=== PATIENT | female | born 1965 | race African-American/Black ===

== ENCOUNTER 2017-11-10 19:30 | Observation (INO) | payer OTHER ==
[2017-11-10] MEDS ORDERED: ALBUTEROL 2.5 MG/3 ML NEB SOL ONE (22:05)
[2017-11-10 22:11] LABS: Absolute Lymphocytes (CBC) 2.3 K/uL (0.7-4.9); Absolute Monocytes 0.7 K/uL (0.1-1.3); Absolute Neutrophil 2.5 K/uL (1.8-8.0); Basophils % 0.5 % (0-1.3); Eosinophils % 4.3 % (0-4.4); Hematocrit 37.3 % (36.0-45.0); Lymphocytes % 39.6 % (15.3-44.8); MCV 77.9 fL (80-100); MPV 8.9 fL (7.6-11.3); Monocytes % 12.6 % (3.3-12.3); RBC Red Blood Cell Count 4.79 M/uL (3.86-4.86)
[2017-11-10 22:28] LABS: Potassium 3.8 mEq/L (3.6-5.0)
[2017-11-10 22:34] LABS: Albumin 3.6 g/dL (3.2-5.5); Bilirubin Direct 0.1 mg/dL (0-0.2); Bilirubin Total 0.3 mg/dL (0.3-1.2); Protein, Total 7.5 g/dL (6.0-8.3)
--- NOTE | 2017-11-10 23:28 | RAD REPORT ---
EXAM DESCRIPTION: RAD - Chest Single View - 11/10/2017 9:27 pm CLINICAL HISTORY: Chest pain COMPARISON: None. TECHNIQUE: AP portable chest image was obtained 8 hour . FINDINGS: Lungs are clear. Heart and vasculature are normal. No measurable pleural effusion and no p neumothorax. No gross bony abnormality seen. No acute aortic findings suspected. IMPRESSION: No acute cardiopulmonary process.
--- NOTE | 2017-11-11 00:37 | ER ---
Nurse's Notes [facility] Name: Radha Hughes Age: 52 yrs Sex: Female : 1965 Arrival Date: 11/10/2017 Time: 19:32 Bed 25 Private MD: Diagnosis: Chest pain, unspecified Presentation: 11/10 19:39 Presenting complaint: Patient states: [place] like indigestion yesterday, but today felt lp1 some chest pressure that makes it hard to take a deep breath, head pressure;. Transition of care: patient was not received from another setting of care. Onset of symptoms was November 10, 2017. Risk Assessment: Do you want to hurt yourself or someone else? Patient reports no desire to harm self or others. Initial Sepsis Screen: Does the patient meet any 2 criteria? No. Patient's initial sepsis screen is negative. Does the patient have a suspected source of infection? No. Patient's initial sepsis screen is negative. Care prior to arrival: None. 19:39 Method Of Arrival: Ambulatory lp1 19:39 Acuity: XIMENA 3 lp1 Triage Assessment: 19:43 General: Appears uncomfortable, Behavior is appropriate for age. Pain: Complains of lp1 pain in chest Pain currently is 8 out of 10 on a pain scale. Quality of pain is described as pressure. Cardiovascular: Patient's skin is warm and dry. Respiratory: Respiratory effort is even, Respiratory pattern is symmetrical, Breath sounds are clear bilaterally. Derm: Skin is pink, warm \T\ dry. 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 - Social history:: Smoking status: Patient/guardian denies using tobacco. - Ebola Screening: : No symptoms or risks identified at this time. - Family history:: not pertinent. - Hospitalizations: : No recent hospitalization is reported. Screenin:50 Abuse screen: Denies threats or abuse. Denies injuries from another. Nutritional aj1 screening: No deficits noted. Tuberculosis screening: No symptoms or risk factors identified. 23:01 Fall Risk None identified. lp1 Assessment: 21:50 General: Appears in no apparent distress. uncomfortable, Behavior is calm, cooperative, aj1 appropriate for age. Pain: Complains of pain in mid-sternal area Pain does not radiate. Pain currently is 8 out of 10 on a pain scale. Quality of pain is described as burning, pressure, Pain began 1 day ago. Is continuous, Alleviated by nothing. Aggravated by nothing. Neuro: Level of Consciousness is awake, alert, obeys commands, Oriented to person, place, time, situation, Speech is normal, Facial symmetry appears normal. Cardiovascular: Reports chest pain, palpitations, shortness of breath, Heart tones S1 S2 present Patient's skin is warm and dry. Rhythm is regular Chest pain is described as Pain is 8 out of 10 on a pain scale. quality is burning, pressure, is located in substernal area began 1 day ago episodes are continuous is aggravated by nothing is alleviated by nothing. Respiratory: Reports cough that is that just started Airway is patent Respiratory effort is even, unlabored, Respiratory pattern is regular, symmetrical, Breath sounds are clear bilaterally. GI: No signs and/or symptoms were reported involving the gastrointestinal system. : No signs and/or symptoms were reported regarding the genitourinary system. EENT: No signs and/or symptoms were reported regarding the EENT system. Derm: No signs and/or symptoms reported regarding the dermatologic system. Skin is pink, warm \T\ dry. normal. Musculoskeletal: No signs and/or symptoms reported regarding the musculoskeletal system. Circulation, motion, and sensation intact. 22:19 Reassessment: Patient appears in no apparent distress at this time. No changes from aj1 previously documented assessment. Patient and/or family updated on plan of care and expected duration. Pain level reassessed. Patient is alert, oriented x 3, equal unlabored respirations, skin warm/dry/pink. 23:00 Reassessment: Patient appears in no apparent distress at this time. Patient and/or lp1 family updated on plan of care and expected duration. Pain level reassessed. Patient is alert, oriented x 3, equal unlabored respirations, skin warm/dry/pink. 11/11 00:00 Reassessment: Patient appears in no apparent distress at this time. No changes from lp1 previously documented assessment. Patient and/or family updated on plan of care and expected duration. Pain level reassessed. Patient aware of pending admission, discussed with provider. 01:00 Reassessment: Patient appears in no apparent distress at this time. Patient resting, lp1 eyes closed, respirations unlabored. Vital Signs: 11/10 19:41 BP 150 / 72; Pulse 62; Resp 20; Temp 98.9(O); Pulse Ox 97% on R/A; Weight 127.01 kg; lp1 Height 5 ft. 4 in. (162.56 cm); Pain 8/10; 21:50 BP 150 / 79; Pulse 53; Resp 18; Pulse Ox 100% on R/A; aj1 22:19 BP 151 / 65; Pulse 59; Resp 18; Pulse Ox 100% on Nebulizer Mask; aj1 23:01 BP 134 / 79; Pulse 58; Resp 18; Pulse Ox 99% on R/A; lp1 11/11 00:00 BP 139 / 67; Pulse 81; Resp 21; Pulse Ox 98% on R/A; lp1 01:00 BP 138 / 82; Pulse 57; Resp 14; Pulse Ox 98% on R/A; lp1 01:35 BP 150 / 76; Pulse 70; Resp 19; Temp 98.5(O); Pulse Ox 99% on R/A; lp1 11/10 19:41 Body Mass Index 48.06 (127.01 kg, 162.56 cm) lp1 ED Course: 11/10 19:32 Patient arrived in ED. as 19:40 Triage completed. lp1 19:40 Arm band placed on left wrist. lp1 19:44 Patient maintains SpO2 saturation greater than 95% on room air. lp1 21:25 Patient moved to radiology via wheelchair. 1 21:25 X-ray completed. Patient tolerated procedure well. 1 21:25 Patient moved back from radiology. 1 21:26 Chest Single View XRAY In Process Unspecified. EDMS 21:31 Isrrael Miranda MD is Attending Physician. rn 21:34 Jojo Lagos, YESSI is Primary Nurse. aj1 21:50 Patient has correct armband on for positive identification. Bed in low position. Call aj1 light in reach. Side rails up X 1. secured entrance monitor on. Pulse ox on. NIBP on. 21:50 No provider procedures requiring assistance completed. aj1 22:03 Initial lab(s) drawn, by me, sent to lab. Inserted saline lock: 20 gauge in left aj1 forearm, using aseptic technique. Blood collected. 11/11 00:35 Lesley Hodgson MD is Hospitalizing Provider. rn 01:31 Patient admitted, IV remains in place. lp1 Administered Medications: 11/10 22:06 Drug: Xopenex 1.25 mg Route: Inhalation; aj1 11/11 01:40 CANCELLED (Inappropriate at this time; wrong patient): Zofran 4 mg IVP once; over 2 lp1 minutes Outcome: 00:36 Decision to Hospitalize by Provider. rn 01:31 Condition: stable lp1 01:31 Instructed on the need for admit. 01:46 Admitted to Tele accompanied by tech, via wheelchair, room 424, with chart, Report lp1 called to YESSI Barney 02:09 Patient left the ED. lp1 Signatures: Dispatcher [employer] EDJojo Dyer RN RN aj1 Lydia Elias [facility] Shanda Celestin Roman, MD MD rn Pena, Laura, RN RN lp1
--- NOTE | 2017-11-11 00:37 | EDPHYS ---
Physician Documentation [facility] Name: Radha Hughes Age: 52 yrs Sex: Female : 1965 Arrival Date: 11/10/2017 Time: 19:32 Bed 25 Private MD: ED Physician Isrrael Miranda HPI: 11/10 21:52 This 52 yrs old Black Female presents to ER via Ambulatory with complaints of Chest rn Pressure, Headache. 21:52 The patient or guardian reports chest pain that is located primarily in the substernal rn area. Onset: yesterday. The pain does not radiate. Associated signs and symptoms: Pertinent positives: palpitations, shortness of breath. The chest pain is described as dull, causing indigestion. Duration: The patient or guardian reports multiple episodes, that are intermittent. Modifying factors: The symptoms are alleviated by nothing. the symptoms are aggravated by nothing. Severity of pain: At its worst the pain was moderate in the emergency department the pain has improved. 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 - Social history:: Smoking status: Patient/guardian denies using tobacco. - Ebola Screening: : No symptoms or risks identified at this time. - Family history:: not pertinent. - Hospitalizations: : No recent hospitalization is reported. ROS: 21:53 Constitutional: Negative for fever, chills, and weight loss, Eyes: Negative for injury, rn pain, redness, and discharge, Neck: Negative for injury, pain, and swelling, Cardiovascular: Negative for edema, Respiratory: Negative for wheezing, and pleuritic chest pain, Abdomen/GI: Negative for abdominal pain, nausea, vomiting, diarrhea, and constipation, MS/Extremity: Negative for injury and deformity, Skin: Negative for injury, rash, and discoloration, Neuro: Negative for headache, weakness, numbness, tingling, and seizure. Exam: 21:53 Constitutional: This is a well developed, well nourished patient who is awake, alert, rn and in no acute distress. Head/Face: Normocephalic, atraumatic. Eyes: Pupils equal round and reactive to light, extra-ocular motions intact. Lids and lashes normal. Conjunctiva and sclera are non-icteric and not injected. Cornea within normal limits. Periorbital areas with no swelling, redness, or edema. Neck: Trachea midline, no thyromegaly or masses palpated, and no cervical lymphadenopathy. Supple, full range of motion without nuchal rigidity, or vertebral point tenderness. No Meningismus. Cardiovascular: Regular rate and rhythm with a normal S1 and S2. No gallops, murmurs, or rubs. Normal PMI, no JVD. No pulse deficits. Respiratory: Lungs have equal breath sounds bilaterally, clear to auscultation and percussion. No rales, rhonchi or wheezes noted. No increased work of breathing, no retractions or nasal flaring. Abdomen/GI: Soft, non-tender, with normal bowel sounds. No distension or tympany. No guarding or rebound. No evidence of tenderness throughout. MS/ Extremity: Pulses equal, no cyanosis. Neurovascular intact. Full, normal range of motion. Equal circumference. Neuro: Awake and alert, GCS 15, oriented to person, place, time, and situation. Cranial nerves II-XII grossly intact. Motor strength 5/5 in all extremities. Sensory grossly intact. Vital Signs: 19:41 BP 150 / 72; Pulse 62; Resp 20; Temp 98.9(O); Pulse Ox 97% on R/A; Weight 127.01 kg; lp1 Height 5 ft. 4 in. (162.56 cm); Pain 8/10; 21:50 BP 150 / 79; Pulse 53; Resp 18; Pulse Ox 100% on R/A; aj1 22:19 BP 151 / 65; Pulse 59; Resp 18; Pulse Ox 100% on Nebulizer Mask; aj1 23:01 BP 134 / 79; Pulse 58; Resp 18; Pulse Ox 99% on R/A; lp1 0530 00:00 BP 139 / 67; Pulse 81; Resp 21; Pulse Ox 98% on R/A; lp1 01:00 BP 138 / 82; Pulse 57; Resp 14; Pulse Ox 98% on R/A; lp1 01:35 BP 150 / 76; Pulse 70; Resp 19; Temp 98.5(O); Pulse Ox 99% on R/A; lp1 11/10 19:41 Body Mass Index 48.06 (127.01 kg, 162.56 cm) lp1 MDM: 11/10 21:31 Patient medically screened. rn 11/11 00:35 Differential diagnosis: abnormal EKG, acute myocardial infarction, acute pericarditis, rn anxiety, coronary artery disease chest wall pain, costochondritis, esophagitis, gastritis, gastroesophageal reflux disease (GERD), pericarditis, pleurisy, pneumothorax. Data reviewed: vital signs, nurses notes, lab test result(s), EKG, radiologic studies, plain films, and as a result, I will admit patient. Counseling: I had a detailed discussion with the patient and/or guardian regarding: the historical points, exam findings, and any diagnostic results supporting the discharge/admit diagnosis, lab results, radiology results, the need for further work-up and treatment in the hospital. Response to treatment: the patient's symptoms have mildly improved after treatment, and as a result, I will admit patient. Admission orders: after a detailed discussion of the patient's condition and case, the admit orders are written by me. 11/10 21:45 Order name: Basic Metabolic Panel; Complete Time: 22:35 11/10 21:45 Order name: BNP; Complete Time: 22:46 11/10 21:45 Order name: CBC with Diff; Complete Time: 22:35 11/10 21:45 Order name: LFT's; Complete Time: 22:35 11/10 21:45 Order name: Troponin (emerg Dept Use Only); Complete Time: 22:35 11/10 21:45 Order name: Lipase; Complete Time: 22:35 11/10 19:45 Order name: Chest Single View XRAY; Complete Time: 23:33 [facility] 11/10 19:45 Order name: EKG - Nurse/Tech; Complete Time: 21:37 [facility] 11/10 21:45 Order name: EKG; Complete Time: 21:45 11/10 21:45 Order name: Procalcitonin; Complete Time: 22:47 11/11 01:09 Order name: Urine Dipstick--Ancillary (enter results) eb 11/11 01:20 Order name: Urine Dipstick-Ancillary EDMS 11/10 21:45 Order name: Cardiac monitoring; Complete Time: 22:02 rn 11/10 21:45 Order name: IV Saline Lock; Complete Time: 22:02 rn 11/10 21:45 Order name: Labs collected and sent; Complete Time: 22:02 rn 11/10 21:45 Order name: O2 Per Protocol; Complete Time: 22:02 rn 11/10 21:45 Order name: O2 Sat Monitoring; Complete Time: 22:02 rn Administered Medications: 11/10 22:06 Drug: Xopenex 1.25 mg Route: Inhalation; [facility] 11/11 01:40 CANCELLED (Inappropriate at this time; wrong patient): Zofran 4 mg IVP once; over 2 lp1 minutes Disposition: 11/11/17 00:36 Hospitalization ordered by Lesley Hodgson for Observation. Preliminary diagnosis is Chest pain, unspecified. - Bed requested for Telemetry/MedSurg (observation). - Status is Observation. lp1 - Condition is Stable. - Problem is an ongoing problem. - Symptoms have improved. UTI on Admission? No Signatures: Dispatcher [employer] EDSD Jojo Lagos RN RN aj1 Kimberly Wilkerson RN RN dw Isrrael Miranda MD MD rn Pena, Laura, RN RN lp1 Corrections: (The following items were deleted from the chart) 00:42 00:36 Hospitalization Ordered by Lesley Hodgson MD for Observation. Preliminary dw diagnosis is Chest pain, unspecified. Bed requested for Telemetry/MedSurg (observation). Status is Observation. Condition is Stable. Problem is an ongoing problem. Symptoms have improved. UTI on Admission? No. rn 01:40 01:40 Zofran 4 mg IVP once; over 2 minutes ordered. lp1 lp1 02:09 00:42 11/11/2017 00:36 Hospitalization Ordered by Lesley Hodgson MD for Observation. lp1 Preliminary diagnosis is Chest pain, unspecified. Bed requested for Telemetry/MedSurg (observation). Status is Observation. Condition is Stable. Problem is an ongoing problem. Symptoms have improved. UTI on Admission? No. dw
[2017-11-11] MEDS ORDERED: SODIUM CHLORIDE 0.9% 10ML INJ IV PRN (01:10)
[2017-11-11] MEDS ORDERED: ONDANSETRON 4 MG/2 ML VIAL IV PRN (01:10)
[2017-11-11] MEDS ORDERED: NITROGLYCERIN 0.4 MG/TAB SL ONE (01:10)
[2017-11-11] MEDS ORDERED: ACETAMINOPHEN 500 MG TAB PO PRN (01:10)
[2017-11-11 01:20] LABS: Urine Blood NEGATIVE (NEG); Urine Glucose NEGATIVE (NEG); Urine Protein NEGATIVE (NEG)
--- NOTE | 2017-11-11 01:20 | P.HP ---
Certification for Inpatient Patient admitted to: Observation With expected LOS: <2 Midnights Practitioner: I am a practitioner with admitting privileges, knowledge of patient current condition, hospital course, and medical plan of care. Services: Services provided to patient in accordance with Admission requirements found in Title 42 Section 412.3 of the Code of Federal Regulations Patient History Date of Service: 11/11/17 Reason for admission: chest pain History of Present Illness: Ms Hughes is a 52 years old woman, with a quite benign past medical history, who start haveing some episodes of chest pain since yesterday. The pain last for a few minutes. Then she start having it again, described as tightness sensation, in substernal/epigastric area, associated with nausea and SOB. She had palpitations as well. She has never had this symptoms in the past. The intensity of the pain is 6/10. In ER her lab work shows normal troponin I, EKG no ST-T abnormalities. Allergies Aspirin Allergy (Uncoded 07/02/15 12:31) Unknown - Past Medical/Surgical History Past Medical History: Reviewed- Non-Contributory -: tubal ligation -: foot - Family History Family History: Reviewed- Non-Contributory - Social History Smoking Status: Never smoker Alcohol use: No CD- Drugs: No Place of Residence: Home Review of Systems 10-point ROS is otherwise unremarkable Physical Examination - Physical Exam General: Alert, In no apparent distress HEENT: Atraumatic, PERRLA, Mucous membr. moist/pink, EOMI, Sclerae nonicteric Neck: Supple, 2+ carotid pulse no bruit, No LAD, Without JVD or thyroid abnormality Respiratory: Clear to auscultation bilaterally, Normal air movement Cardiovascular: Regular rate/rhythm, Normal S1 S2 Gastrointestinal: Normal bowel sounds, No tenderness Musculoskeletal: No tenderness Integumentary: No rashes Neurological: Normal speech, Normal strength at 5/5 x4 extr, Normal tone, Normal affect Lymphatics: No axilla or inguinal lymphadenopathy - Studies Laboratory Data (last 24 hrs) 11/10/17 21:59: WBC 5.7, Hgb 11.5 L, Hct 37.3, Plt Count 236 11/10/17 21:59: B-Natriuretic Peptide < 10 11/10/17 21:59: Sodium 139, Potassium 3.8, BUN 13, Creatinine 0.86, Glucose 105 , Total Bilirubin 0.3, AST 23, ALT 25, Alkaline Phosphatase 70, Lipase 21 L Assessment and Plan - Problems (Diagnosis) (1) Chest pain Current Visit: Yes Status: Acute Qualifiers: Chest pain type: precordial pain Qualified Code(s): R07.2 - Precordial pain - Plan The patient will be admitted to the hospital due to chest pain. So far EKG without ST-T abnormalities, trop I negative. Will order serial cardiac enzymes and EKG. Consult Cardiology. Will order an ECHO. - Advance Directives Does patient have a Living Will: No Does patient have a Durable POA for Healthcare: No - Code Status/Comfort Care Code Status Assessed: Yes Code Status: Full Code
[2017-11-11 02:49] VITALS: BMI 48.0
[2017-11-11 04:58] VITALS: O2SAT 97
--- NOTE | 2017-11-11 07:43 | EKG ---
Test Date: 2017-11-10 Test Time: 19:53:34 Educator Senior Clinical: MEASUREMENT RESULTS: Intervals: Rate: 57 MA: 176 QRSD: 88 QT: 430 QTc: 418 [place]: P: 51 MA: 176 QRS: 47 T: 54 INTERPRETIVE STATEMENTS: Sinus bradycardia Otherwise normal ECG No previous ECG available for comparison Electronically Signed On 11-11-17 07:42:45 CDT by Vitaly Rivas
[2017-11-11 08:31] VITALS: TEMP 97.3
[2017-11-11] MEDS ORDERED: ENOXAPARIN 40 MG/0.4 ML SQ SCH (09:00)
[2017-11-11] MEDS ORDERED: PANTOPRAZOLE 40 MG INJ IVP SCH (09:00)
[2017-11-11] MEDS ORDERED: CLOPIDOGREL 75 MG TABLET PO SCH (09:00)
--- NOTE | 2017-11-11 10:24 | EKG ---
Test Date: 2017-11-11 Test Time: 09:10:28 Lines Tender: [place] MEASUREMENT RESULTS: Intervals: Rate: 57 TN: 172 QRSD: 84 QT: 444 QTc: 432 [place]: P: 48 TN: 172 QRS: 46 T: 52 INTERPRETIVE STATEMENTS: Sinus bradycardia Otherwise normal ECG Compared to ECG 11/10/2017 19:53:34 No significant changes Electronically Signed On 11-11-17 10:24:20 CDT by Viatly Rivas
[2017-11-11 12:30] VITALS: BP 139/59
--- NOTE | 2017-11-11 12:33 | TREADMILL ---
70% H.R.: 118 85% H.R.: 143 90% H.R.: 151 100% H.R.: 168 DX: CHEST PAIN Date of Study: 11/11/2017 Ht: 5 4 Wt: 280 lb 0 oz Consulting Physician: KAYLEE MEDICATIONS: TYLENOL, PLAVIX, LOVENOX, ZOFRAN, PROTONIC HISTORY: 52 YEAR OLD WOMAN WITH CHEST PAIN. MYOCARDIAL INFARCTION WAS RULED OUT. PHYSICIAL EXAMINATION: RESTING B.P.: 166/95 RESTING H.R.: 51 RESTING EKG: SINUS BRADYCARDIA, OTHERWISE NORMAL. PROTOCOL: ANTONIO ROUTINE EXERCISE TIME: 6:23 MAXIMUM HEART RATE: 145 % OF PREDICTED B.P. AT PEAK STRESS: 217/96 168/98 H.R. AT 1 MINUTE POST EXERCISE: 130 IMPRESSION: STRESS TEST STOPPED FOR FATIGUE. TARGET HEART RATE. NO CHEST PAIN OR ST CHANGE. NORMAL STRESS TEST.
--- NOTE | 2017-11-11 13:01 | CON ---
Identification: A 52-year-old woman. Attending Physician: Dr. Colvin. Chief Complaint: Indigestion. History Of Present Illness: Ms. Hughes started having chest pain. She gets heartburn frequently an d does not pay much attention to it, but this seemed to be different, especially when she laid down i n bed. She does not have exertional chest tightness or anything that sounds very much like angina. She has no history of heart disease. She did a stress test several years ago and that was normal. N ever had myocardial infarction or stroke. She does not have diabetes or dyslipidemia. She uses no t obacco. She is allergic to aspirin. She uses Aleve frequently for headaches. Physical Examination: General: She is 5 feet 4 inches, 280 pounds, body mass index 48. HEENT: Normal. Neck: Carotids no bruit. Lungs: Clear. Extremities: 1 to 2+ edema. Laboratory Data: Reveals a normal B-natriuretic peptide, normal troponins, normal procalcitonin, nor mal BUN, creatinine, blood sugar, electrolytes. Her complete blood count reveals mild microcytosis, mild anemia. The patient has been told that she has iron deficiency in the past. She has had a tuba l ligation. Still has menstrual periods and has not had a GI evaluation for her blood loss. Impression: This is probably a noncardiac chest pain. We should attempt a stress test and echocardi ogram to see, perhaps a GI workup as an outpatient would be useful. She could certainly be started on a proton pump inhibitor. Check stool guaiac while she is here. JOCE Voice ID: [id number] Report ID: [id number]
[2017-11-11] MEDS ORDERED: NITROGLYCERIN 0.4 MG/TAB SL PRN (13:23)
[2017-11-11] MEDS ORDERED: Morphine 2 MG/2 ML SYR IV ONE (14:00)
--- NOTE | 2017-11-11 15:47 | EKG ---
Test Date: 2017-11-11 Test Time: 14:01:32 Clinic Cma: DAVID MEASUREMENT RESULTS: Intervals: Rate: 67 VT: 182 QRSD: 78 QT: 402 QTc: 424 [place]: P: 62 VT: 182 QRS: 61 T: 64 INTERPRETIVE STATEMENTS: Normal sinus rhythm Normal ECG Compared to ECG 11/11/2017 09:10:28 Sinus bradycardia no longer present Electronically Signed On 11-11-17 15:46:02 CDT by Vitaly Rivas
--- NOTE | 2017-11-11 15:49 | ECHO ---
HEIGHT: 5 ft 4 in WEIGHT: 280 lb 0 oz DATE OF STUDY: 11/11/[address]: Vitaly Rivas MD 2-DIMENSIONAL: YES M.MODE: YES DOPPLER: YES COLOR FLOW: YES TDS: NO PORTABLE: NO DEFINITY: NO BUBBLE STUDY: NO DIAGNOSIS: CHEST PAIN CARDIAC HISTORY: CATHERIZATION: NO SURGERY: NO PROSTHETIC VALVE: NO PACEMAKER: NO MEASUREMENTS (cm) DIASTOLIC (NORMALS) SYSTOLIC (NORMALS) IVSd 0.8 (0.6-1.2) LA Diam 3.6 (1.9-4.0) LVEF 53% LVIDd 4.3 (3.5-5.7) LVIDs 3.1 (2.0-3.5) %FS 27% LVPWd 0.9 (0.6-1.2) Ao Diam 3.0 (2.0-3.7) 2 DIMENSIONAL ASSESSMENT: RIGHT ATRIUM: NORMAL LEFT ATRIUM: NORMAL RIGHT VENTRICLE: NORMAL LEFT VENTRICLE: NORMAL TRICUSPID VALVE: NORMAL MITRAL VALVE: NORMAL PULMONIC VALVE: NORMAL AORTIC VALVE: NORMAL PERICARDIAL EFFUSION: NONE AORTIC ROOT: NORMAL LEFT VENTRICULAR WALL MOTION: NORMAL. DOPPLER/COLOR FLOW: NORMAL. COMMENTS: NORMAL 2D ECHO WITH DOPPLER. TECHNOLOGIST: ANJU BECKFORD
[2017-11-12] MEDS ORDERED: PANTOPRAZOLE 40MG TABLET PO SCH (07:30)
--- NOTE | 2017-11-12 11:59 | DS ---
Date of Discharge: 11/11/2017 Consultants: Dr. Rivas with Cardiology. Procedure: Exercise stress test, negative. Admitting Diagnoses: 1.Chest pain, rule out acute coronary syndrome. 2.Morbid obesity. BMI is 48. 3.Microcytic hypochromic anemia. Discharge Diagnoses: 1.Atypical chest pain. Acute coronary syndrome ruled out. Exercise stress test negative. 2.Morbid obesity. BMI 48. 3.Microcytic hypochromic anemia, likely secondary to continued administration at her age. Hospital Course: The patient is a 52-year-old female who came into the hospital for episodes of ches t pain that has been ongoing for the past couple of days, reported some tightness in the epigastric s ubsternal region along with nausea and shortness of breath. The patient's workup revealed negative t roponin levels and chest x-ray did not show any acute abnormalities. EKG showed sinus bradycardia, n o acute ST-T wave changes. The patient was seen by Cardiology, Dr. Rivas, who recommended exercise stress test, which was negative. The patient was then cleared for discharge from a cardiology standp oint. The patient will need to follow up with GI for her anemia or perhaps it will be due to her con tinued menstrual cycles at her age of 52 to rule out a more concerning pathology. The patient will b e started on PPI trial as this may be atypical chest pain and will have a stool guaiac checked. The patient is discharged home in a stable condition. Activity: As tolerated. Medications: As per medication reconciliation note. Diet: Calorie restricted. She was counseled extensively on losing weight. Her best option will be bariatric surgery due to her elevated BMI of 48. She needs to establish care with a primary care phy sician. Medications: As per medication reconciliation list. Physical Examination: General: Awake, alert, oriented, no acute distress. CVS: S1, S2. No murmurs. Respiratory: Moving air well bilaterally. Abdomen: Soft, nontender, nondistended. Positive bowel sounds. Extremities: No clubbing, cyanosis, or edema. Neurologic: Nonfocal. SA/MODL Voice ID: [id number] Report ID: [id number]
== END 2017-11-11 15:45 | disposition home or self-care (01) ==
LOC: ER 19:30 → ERHOLD 11-11 00:37 → 4TH 11-11 01:39
PROVIDERS: ADMIT Internal Medicine; ATTEND Internal Medicine
DX: R07.89 Other chest pain (principal); E66.01 Morbid (severe) obesity due to excess calories; Z68.42 Body mass index [BMI] 45.0-49.9, adult; D50.9 Iron deficiency anemia, unspecified; Z88.6 Allergy status to analgesic agent
CPT/HCPCS: 36415; 71045; 80048; 80076; 81003; 83690; 83880; 84145; 84484; 85025; 93005; 93017; 93306; 99285; C9113; G0378; J1650; J2270

== ENCOUNTER 2018-09-22 09:29 | Emergency (ER) | payer OTHER ==
--- OUTSIDE RECORDS SUMMARY | 2018-09-22 09:32 | XMS REPORT | Continuity of Care Document ---
:1965 Author Organization Interface Problems Problem Status Onset Classification Date Comments Source Date Reported 5TH DIGIT OPEN Active [facility] LEFT TOE FX 6 Medical Center Final: 05/21/2016 [facility] Displaced Medical unspecified Center fracture of left lesser toe, initial encounter for open fracture DISPLACED UNSP Active [facility] FX LEFT LESSER Medical TOE(S), [place] Center Medications Medication Details Route Status Patient Ordering Order Source Instructions Provider Date Acetaminophen 1 - 2 tab, PO, Active [place] 300 MG / Q6H, PRN Pain, X 2015 Medical Codeine 4 day, # 32 tab, Center Phosphate 30 MG 0 Refill(s) Oral Tablet [Tylenol with Codeine #3] methocarbamol 1,000 mg=2 tab, Active [place] 500 mg oral PO, Q8H, X 14 2015 Medical tablet day, # 84 tab, 0 Center Refill(s) gabapentin 300 300 mg=1 cap, Active [facility] MG Oral Capsule PO, Q8H, # 42 2016 Medical cap, 0 Refill(s) Center Miralax 17 gm, 1 pkt, No Longer [facility] Route: PO, Drug Active 2015 Medical form: PWDR, BID, Center Dosing Weight 119.091, kg, Start date: 05/16/16 9:00:00 [employer], Duration: 30 day, Stop date: 06/14/16 17:00:00 CSTNotes: Dissolve in 8 oz of water or juice. (Same as: Miralax) Robaxin 500 mg, 1 tab, Inactive [facility] Route: PO, Drug 2015 Medical form: TAB, TID, Center Dosing Weight 119.091, kg, Start date: 05/16/16 9:00:00 [employer], Duration: 30 day, Stop date: 06/14/16 17:00:00 CSTNotes: (Same as:Robaxin) gabapentin 300 300 mg, 1 cap, No Longer [facility] MG Oral Capsule Route: PO, Drug Active 2015 Medical form: CAP, Q8H, Center Dosing Weight 119.091, kg, (CrCl > 60 ml/min), Start date: 05/16/16 8:00:00 [employer], Duration: 30 day, Stop date: 06/15/16 0:00:00 CSTNotes: (Same as: Neurontin) Methocarbamol 1,000 mg, 2 tab, No Longer [facility] Route: PO, Drug Active 2015 Medical form: TAB, Q8H, Center Dosing Weight 119.091, kg, Start date: 05/16/16 8:00:00 [employer], Duration: 30 day, Stop date: 06/15/16 0:00:00 CSTNotes: (Same as:Robaxin) sennosides, FCI 17.2 mg, 2 tab, No Longer [facility] Route: PO, Drug Active 2015 Medical Form: TAB, Center Dosing Weight 119.091, kg, Bedtime, Start date: 05/15/16 21:00:00 [employer], Duration: 30 day, Stop date: 06/13/16 21:00:00 CSTNotes: (Same as: Senokot) Tramadol 100 mg, 2 tab, No Longer [facility] Route: PO, Drug Active 2015 Medical form: TAB, Center Q6Hnow, Dosing Weight 119.091, kg, Start date: 05/15/16 18:00:00 [employer], Duration: 30 day, Stop date: 06/14/16 12:00:00 CSTNotes: Not to exceed 400mg/day. (Same As: Ultram) Dulcolax 10 mg, 2 tab, No Longer [facility] Laxative Route: PO, Drug Active 2015 Medical form: ECTAB, Center Daily, Dosing Weight 119.091, kg, PRN Constipation, Start date: 05/15/16 17:06:00 [employer], Duration: 30 day, Stop date: 06/14/16 17:05:00 CSTNotes: (Same As: Dulcolax, Correctol) (Do Not Crush) "Do Not Crush" Tylenol 650 mg, 2 tab, No Longer [facility] Route: PO, Drug Active 2015 Medical form: TAB, Q6H, Center Dosing Weight 119.091, kg, PRN Pain 1-3/Temp > 100.4 F, Start date: 05/15/16 17:06:00 [employer], Duration: 30 day, Stop date: 06/14/16 17:05:00 CSTNotes: Do not exceed 4 gm/day. (Same as: Tylenol) ceFAZolin 2 gm, Route: No Longer [facility] (SCIP) + sodium IVPB, Drug form: Active 2016 Medical chloride 0.9% INJ, Q8H, Dosing Center INJ 100 mL Weight 119.091, kg, Start date: 05/15/16 16:00:00 [employer]IST, Duration: 9 doses or times, Stop date: 05/18/16 8:00:00 CSTNotes: (Same As: Jeff Cedillo) Cefazolin FOR IV SET ONLY MEDICATION WASTE Product Size: 1000 mg Product Wasted: ___ mg Docusate 100 mg, 1 cap, No Longer [facility] Route: PO, Drug Active 2015 Medical form: CAP, BID, Center Dosing Weight 119.091, kg, Start date: 05/15/16 9:00:00 [employer], Duration: 30 day, Stop date: 06/13/16 17:00:00 CSTNotes: (Same as: Colace) (Do Not Crush) Hydromorphone 0.5 mg, 0.25 mL, Inactive [facility] Route: IVP, Drug 2015 Medical form: INJ, Center Q5Min, Dosing Weight 119.091, kg, PRN Pain Score 7-10, Start date: 05/15/16 8:14:00 [employer], Duration: 4 doses or times, Stop date: Limited # of timesNotes: (Same as: Dilaudid) Flumazenil 0.2 mg, 2 mL, Inactive [facility] Route: IVP, Drug 2015 Medical form: INJ, PRN, Center Dosing Weight 119.091, kg, PRN Benzodiazepine Reversal, Initial dose, Start date: 05/15/16 8:14:00 [employer]IST, Duration: 1 day, Stop date: 05/16/16 8:13:00 CSTNotes: (Same as: Romazicon) Naloxone 0.4 mg, 1 mL, Inactive [facility] Route: IVP, Drug 2015 Medical form: INJ, Center Q2MIN, Dosing Weight 119.091, kg, PRN Narcotic Reversal, Start date: 05/15/16 8:14:00 [employer]IST, Duration: 8 doses or times, Stop date: Limited # of timesNotes: (Same as: Narcan) Meperidine 12.5 mg, 0.5 mL, Inactive [facility] Route: IVP, Drug 2015 Medical form: INJ, Center Q30Min, Dosing Weight 119.091, kg, PRN Other -See Comment, For shivering, Start date: 05/15/16 8:14:00 [employer]IST, Duration: 2 doses or times, Stop date: Limited # of timesNotes: (Same as: Demerol) "Use Precaution in Elderly, Seizure disorders, and Renal impairment" Ondansetron 4 mg, 2 mL, Inactive [facility] Route: IVP, Drug 2015 Medical form: INJ, ONCE, Center Dosing Weight 119.091, kg, PRN Nausea & Vomiting, Start date: 05/15/16 8:14:00 CSTNotes: (Same as: Zofran) MEDICATION WASTE Product Size: 4 mg Product Wasted: ___ mg Morphine 2 mg, 1 mL, Inactive [facility] Route: IVP, Drug 2015 Medical form: INJ, Center Q5Min, Dosing Weight 119.091, kg, PRN Pain Score 4-6, Start date: 05/15/16 8:14:00 [employer]IST, Duration: 5 doses or times, Stop date: Limited # of timesNotes: (Same as:MORPhine Sulfate) Enoxaparin 40 mg, 0.4 mL, No Longer [facility] Route: SUB-Q, Active 2015 Medical Drug form: INJ, Center [id number], Dosing Weight 119.091, kg, Consider for obese patients, Start date: 05/15/16 3:00:00 [employer]IST, Duration: 30 day, Stop date: 06/13/16 15:00:00 CSTNotes: (Same as: Lovenox) Acetaminophen 1,000 mg, 2 tab, No Longer [facility] Route: PO, Drug Active 2015 Medical form: TAB, Center Q6Hnow, Dosing Weight 119.091, kg, PRN Pain 4-6/Temp > 100.4 F, Start date: 05/15/16 2:32:00 C[employer]IST, Stop date: 06/14/16 2:31:00 CSTNotes: Max acetaminophen 4000 mg/day (4 gm/day). (Same as: Tylenol Extra Strength) Tramadol 100 mg, 2 tab, Inactive [place] Route: PO, Drug 2015 Medical form: TAB, Center Q6Hnow, Dosing Weight 119.091, kg, PRN Pain Score 4-6, Start date: 05/15/16 2:32:00 C[employer]ING [employer]IST, Duration: 30 day, Stop date: 06/14/16 2:31:00 CSTNotes: Not to exceed 400mg/day. (Same As: Ultram) Oxycodone 10 mg, 2 tab, No Longer [facility] 5 Route: PO, Drug Active 2015 Medical MG Oral Tablet form: TAB, Q4H, Center Dosing Weight 119.091, kg, PRN Pain Score 7-10, Start date: 05/15/16 2:32:00 C[employer]IST, Duration: 30 day, Stop date: 06/14/16 2:31:00 CSTNotes: (Same as: Roxicodone) Ondansetron 4 mg, 2 mL, No Longer [facility] Route: IVP, Drug Active 2015 Medical form: INJ, Q8H, Center Dosing Weight 119.091, kg, PRN Nausea & Vomiting, Start date: 05/15/16 2:32:00 C[employer]IST, Duration: 30 day, Stop date: 06/14/16 2:31:00 CSTNotes: (Same as: Zofran) MEDICATION WASTE Product Size: 4 mg Product Wasted: ___ mg Bisacodyl 10 mg, 1 supp, No Longer [facility] Route: NE, Drug Active 2015 Medical form: SUPP, Center Daily, Dosing Weight 119.091, kg, PRN Constipation, Start date: 05/15/16 2:32:00 C[employer]ING [employer]IST, Duration: 30 day, Stop date: 06/14/16 2:31:00 CSTNotes: (Same As: Dulcolax, Bisco-Lax) Methocarbamol 1,000 mg, 2 tab, No Longer [facility] Route: PO, Drug Active 2015 Medical form: TAB, Q8H, Center Dosing Weight 119.091, kg, PRN Muscle Spasms, Start date: 05/15/16 2:32:00 C[employer]ING SPECIALIST, Duration: 30 day, Stop date: 06/14/16 2:31:00 CSTNotes: (Same as:Robaxin) Melatonin 3 mg, 1 tab, No Longer [facility] Route: PO, Drug Active 2015 Medical form: TAB, Center Bedtime, Dosing Weight 119.091, kg, PRN Insomnia, Start date: 05/15/16 2:32:00 C[employer]IST, Duration: 30 day, Stop date: 06/14/16 2:31:00 CSTNotes: (Same as: Melatonin) Morphine 2 mg, 0.5 mL, No Longer [facility] Route: IVP, Drug Active 2015 Medical form: SOLN, Q4H, Center Dosing Weight 119.091, kg, PRN Pain Score 7-10, Start date: 05/15/16 2:32:00 C[employer]IST, Duration: 30 day, Stop date: 06/14/16 2:31:00 CSTNotes: (Same as:MORPhine Sulfate) Morphine 4 mg, 1 mL, Inactive [facility] Route: IVP, Drug 2015 Medical form: SOLN, Center ONCE, Dosing Weight 119.091, kg, Priority: STAT, Start date: 05/15/16 1:26:00 C[employer]ING [employer]IST, Stop date: 05/15/16 1:26:00 CSTNotes: (Same as:MORPhine Sulfate) Ondansetron 4 mg, Route: Inactive [facility] IVP, Drug form: 2016 Medical INJ, ONCE, Center Dosing Weight 119.091, kg, Priority: STAT, Start date: 05/14/16 21:58:00 C[employer]ING [employer]IST, Stop date: 05/14/16 21:58:00 C[employer] POSTING [employer]IST Morphine 4 mg, Route: Inactive [facility] IVP, ONCE, 2016 Medical Dosing Weight Center 119.091, kg, Priority: STAT, Start date: 05/14/16 21:58:00 C[employer]ING SPECIALIST, Stop date: 05/14/16 21:58:00 C[employer] POSTING [employer]IST Ancef 2 gm, Route: Inactive [facility] IVPB, ONCE, 2016 Medical Dosing Weight Center 119.091, kg, Priority: STAT, Start date: 05/14/16 21:58:00 C[employer]ING [employer]IST, Stop date: 05/14/16 21:58:00 C[employer]ING [employer]IST Saline Flush 10 mL, Route: No Longer [facility] 0.9% IVP, Drug Form: Active 2015 Medical INJ, Dosing Center Weight 119.091, kg, PRN, PRN Line Flush, Start date: 05/14/16 21:58:00 C[employer] POSTING SPECIALIST, Duration: 30 day, Stop date: 06/13/16 21:57:00 CSTNotes: (Same as: BD Posiflush) Allergies, Adverse Reactions, Alerts Substance Category Reaction Severity Reaction Status Date Comments Source type Reported aspirin Assertion Drug Active [facility] Immunizations Immunization Date Given Site Status Last Updated Comments Source Results Order Name Results Value Reference Date Interpretation Comments Source Range ANEMIA TIBC 318 ug/dl 228 - 428 05/18 [facility]2015 [facility] ANEMIA Iron 42 ug/dl 30 - 160 05/[address] ANEMIA % [place] 13 % 12 - 57 05/[address] ANEMIA UIBC 276 ug/dl 110 - 370 05/[address] CHEM PANEL Phosphorus 2.7 mg/dL 2.5 - 4.5 05/[address] CHEM PANEL B/C Ratio 11 6 - 25 05/[address] CHEM PANEL AGAP 9.5 meq/L 10.0 - 05/18 [facility] 20.0 [facility] CHEM PANEL Globulin 4.4 g/dL 2.7 - 4.2 05/[address] CHEM PANEL A/G Ratio 0.7 0.7 - 1.6 05/[address] CHEM PANEL eGFR 96 05/18 Result Comment: The eGFR is calculated using the CKD-EPI formula. In most young, healthy individuals the eGFR will be >90 mL/ min/1.73m2. The eGFR declines with age. An eGFR of 60-89 may be normal in [facility] mL/min/1.73 some populations, particularly the elderly, for whom the CKD-EPI formula has not been extensively validated. Use of the eGFR is not recommended in the following populations: [address] Individuals with unstable creatinine concentrations, including patients and those with serious co-morbid conditions. Patients with extremes in muscle mass or diet. The data above are obtained from the National Kidney Disease Education Program (NKDEP) which additionally recommends that when the eGFR is used in patients with extremes of body mass index for purposes of drug dosing, the eGFR should be multiplied by the estimated BMI. CHEM PANEL Bili Total 0.2 mg/dL 0.2 - 1.3 05/18 [facility] CHEM PANEL Alk Phos 66 unit/L 39 - 136 05/[address] CHEM PANEL ALT 25 unit/L 0 - 65 05/[address] CHEM PANEL AST 32 unit/L 0 - 37 05/[address] CHEM PANEL Albumin Lvl 2.9 g/dL 3.5 - 5.0 05/[address] CHEM PANEL Calcium Lvl 8.9 mg/dL 8.5 - 10.5 05/[address] CHEM PANEL Total 7.3 g/dL 6.4 - 8.4 05/18 [facility] CHEM PANEL Creatinine 0.82 mg/dL 0.50 - 05/18 [facility] Lvl 1.40 [facility] CHEM PANEL CO2 29 meq/L 24 - 32 05/[address] CHEM PANEL Sodium Lvl 136 meq/L 135 - 145 05/[address] CHEM PANEL Potassium 4.5 meq/L 3.5 - 5.1 05/18 [facility] [address] [place] [address] CHEM PANEL Chloride Lvl 102 meq/L 95 - 109 05/[address] CHEM PANEL BUN 9 mg/dL 7 - 22 05/[address] CHEM PANEL Glucose Lvl 102 mg/dL 70 - 99 05/[address] CHEM PANEL Magnesium 2.0 mg/dL 1.8 - 2.4 05/18 [facility] HEMATOLOGY Lymphocytes 20.2 % 20.0 - 12/ [place] 40.0 [facility] HEMATOLOGY Monocytes 12.3 % 2.0 - 12.0 05/[address] HEMATOLOGY Segs 63.7 % 45.0 - 12/04 [place] 75.0 [facility] HEMATOLOGY Eosinophils 3.4 % 0.0 - 4.0 05/18 [facility] HEMATOLOGY Basophils 0.4 % 0.0 - 1.0 05/18 [facility] HEMATOLOGY Monocytes # 0.6 K/CMM 0.0 - 0.8 05/18 [facility] HEMATOLOGY Segs-Bands # 3.2 K/CMM 1.5 - 8.1 05/18 [facility] HEMATOLOGY Lymphocytes 1.0 K/CMM 1.0 - 5.5 05/18 [facility] HEMATOLOGY Eosinophils 0.2 K/CMM 0.0 - 0.5 05/18 [facility] HEMATOLOGY Microcyte 1+ None Seen 05/18 [facility] Center (05/18/16 4:30 AM) HEMATOLOGY Platelet 200 K/CMM 133 - 450 05/18 [facility] HEMATOLOGY RDW 16.3 % 11.5 - 05/18 [facility] 14.5 [facility] HEMATOLOGY MPV 9.0 fL 7.4 - 10.4 05/18 [facility] HEMATOLOGY RBC 4.44 M/CMM 4.20 - 05/18 [facility] 5.40 [facility] HEMATOLOGY WBC 5.0 K/CMM 3.7 - 10.4 05/18 [facility] HEMATOLOGY MCH 24.9 pg 27.0 - 05/18 [facility] 31.0 [facility] HEMATOLOGY MCV 78.7 fL 80.0 - 05/18 [facility] 98.0 [facility] HEMATOLOGY MCHC 31.7 g/dL 32.0 - 12/ [facility] 36.0 [facility] HEMATOLOGY Hct 35.0 % 36.0 - 12 [place] 48.0 [facility] HEMATOLOGY Hgb 11.1 g/dL 12.0 - 05/18 [facility] 16.0 [facility] CHEM PANEL Calcium Lvl 8.8 mg/dL 8.5 - 10.5 05/17 [facility]2015 [facility] CHEM PANEL eGFR 99 05/17 Result Comment: The eGFR is calculated using the CKD-EPI formula. In most young, healthy individuals the eGFR will be >90 mL/ min/1.73m2. The eGFR declines with age. An eGFR of 60-89 may be normal in [facility] mL/min/1.73 /2016 some populations, particularly the elderly, for whom the CKD-EPI formula has not been extensively validated. Use of the eGFR is not recommended in the following populations: [place] [address] Center Individuals with unstable creatinine concentrations, including patients and those with serious co-morbid conditions. Patients with extremes in muscle mass or diet. The data above are obtained from the National Kidney Disease Education Program (NKDEP) which additionally recommends that when the eGFR is used in patients with extremes of body mass index for purposes of drug dosing, the eGFR should be multiplied by the estimated BMI. CHEM PANEL AGAP 13.2 meq/L 10.0 - 05/17 [facility] 20.0 [facility] CHEM PANEL CO2 27 meq/L 24 - 32 05/17 2015 [facility] CHEM PANEL Glucose Lvl 73 mg/dL 70 - 99 05/17 [facility]2015 [facility] CHEM PANEL BUN 7 mg/dL 7 - 22 05/[address] CHEM PANEL Chloride Lvl 106 meq/L 95 - 109 05/17 [facility]2015 [facility] CHEM PANEL Creatinine 0.80 mg/dL 0.50 - 05/17 [facility] Lvl 1.40 [facility] CHEM PANEL Sodium Lvl 142 meq/L 135 - 145 05/17 [facility] CHEM PANEL Potassium 4.2 meq/L 3.5 - 5.1 05/17 [facility] HEMATOLOGY Lymphocytes 34.7 % 20.0 - 05/17 [facility] 40.0 [facility] HEMATOLOGY Monocytes 13.6 % 2.0 - 12.0 05/17 2015 [facility] HEMATOLOGY Eosinophils 3.2 % 0.0 - 4.0 05/17 [facility] HEMATOLOGY Basophils 0.5 % 0.0 - 1.0 05/[address] HEMATOLOGY Segs-Bands # 2.2 K/CMM 1.5 - 8.1 05/17 [facility]2015 [facility] HEMATOLOGY Lymphocytes 1.6 K/CMM 1.0 - 5.5 05/17 [facility] HEMATOLOGY Monocytes # 0.6 K/CMM 0.0 - 0.8 05/[address] HEMATOLOGY Eosinophils 0.1 K/CMM 0.0 - 0.5 05/17 [facility] HEMATOLOGY Microcyte 1+ None Seen 05/17 [facility] Center (05/17/16 2:48 AM) HEMATOLOGY Segs 48.0 % 45.0 - 05/17 [place] 75.0 /2015 [facility] HEMATOLOGY Platelet 202 K/CMM 133 - 450 05/17 [facility] HEMATOLOGY MPV 9.3 fL 7.4 - 10.4 05/17 [facility] HEMATOLOGY MCH 24.6 pg 27.0 - 12 [place] 31.0 /2015 [facility] HEMATOLOGY MCV 78.3 fL 80.0 - 05/17 [place] 98.0 /2015 [facility] HEMATOLOGY RDW 16.6 % 11.5 - 12 [place] 14.5 /2015 [facility] HEMATOLOGY MCHC 31.4 g/dL 32.0 - 12 [place] 36.0 /2015 [facility] HEMATOLOGY Hct 34.3 % 36.0 - 12/ [place] 48.0 /2015 [facility] HEMATOLOGY Hgb 10.8 g/dL 12.0 - 05/17 [place] 16.0 [facility] HEMATOLOGY RBC 4.38 M/CMM 4.20 - 05/17 [facility] 5.40 /2015 [facility] HEMATOLOGY WBC 4.5 K/CMM 3.7 - 10.4 05/17 [facility] CHEM PANEL eGFR 116 05/16 Result Comment: The eGFR is calculated using the CKD-EPI formula. In most young, healthy individuals the eGFR will be >90 mL/ min/1.73m2. The eGFR declines with age. An eGFR of 60-89 may be normal in [facility] mL/min/1.73 /2015 some populations, particularly the elderly, for whom the CKD-EPI formula has not been extensively validated. Use of the eGFR is not recommended in the following populations: [address] Individuals with unstable creatinine concentrations, including patients and those with serious co-morbid conditions. Patients with extremes in muscle mass or diet. The data above are obtained from the National Kidney Disease Education Program (NKDEP) which additionally recommends that when the eGFR is used in patients with extremes of body mass index for purposes of drug dosing, the eGFR should be multiplied by the estimated BMI. CHEM PANEL Glucose Lvl 107 mg/dL 70 - 99 05/16 [facility] CHEM PANEL BUN 7 mg/dL 7 - 22 05/16 [facility]2015 [facility] CHEM PANEL Creatinine 0.70 mg/dL 0.50 - 12 [facility] Lvl 1.40 /2015 [facility] CHEM PANEL Potassium 4.0 meq/L 3.5 - 5.1 05/16 [facility] Lvl [facility] CHEM PANEL Sodium Lvl 137 meq/L 135 - 145 05/16 [facility] CHEM PANEL Chloride Lvl 104 meq/L 95 - 109 05/[address] CHEM PANEL CO2 23 meq/L 24 - 32 12 [facility] CHEM PANEL Calcium Lvl 8.7 mg/dL 8.5 - 10.5 05/16 [facility] CHEM PANEL AGAP 14.0 meq/L 10.0 - 12 [facility] 20.0 [facility] HEMATOLOGY Monocytes # 0.5 K/CMM 0.0 - 0.8 05/16 [facility] HEMATOLOGY Lymphocytes 1.1 K/CMM 1.0 - 5.5 05/16 [facility] [address] [place] [address] HEMATOLOGY Eosinophils 0.1 K/CMM 0.0 - 0.5 05/16 [facility] HEMATOLOGY Eosinophils 2.0 % 0.0 - 4.0 05/16 [facility] [address] [place] [address] HEMATOLOGY Segs 70.0 % 45.0 - 05/16 [facility] 75.0 [facility] HEMATOLOGY Segs-Bands # 4.0 K/CMM 1.5 - 8.1 05/16 [facility] [address] [place] [address] HEMATOLOGY Basophils 0.2 % 0.0 - 1.0 05/16 [facility] [address] [place] [address] HEMATOLOGY Monocytes 9.1 % 2.0 - 12.0 05/16 [facility] [address] [place] [address] HEMATOLOGY Lymphocytes 18.7 % 20.0 - 05/16 [facility] 40.0 [facility] HEMATOLOGY Microcyte 1+ None Seen 05/16 [facility]* Center (05/16/16 5:26 AM) HEMATOLOGY Platelet 208 K/CMM 133 - 450 05/16 [facility] HEMATOLOGY MPV 8.9 fL 7.4 - 10.4 05/16 [facility]2015 [facility] HEMATOLOGY Hct 37.3 % 36.0 - 05/16 [facility] 48.0 [facility] HEMATOLOGY RDW 16.3 % 11.5 - 12 14.5 [facility] HEMATOLOGY MCHC 31.5 g/dL 32.0 - 05/16 [facility] 36.0 /2015 [facility] HEMATOLOGY MCH 24.8 pg 27.0 - 05/16 [facility] 31.0 /2015 [facility] HEMATOLOGY Hgb 11.7 g/dL 12.0 - 05/16 [facility] 16.0 /2015 [facility] HEMATOLOGY WBC 5.7 K/CMM 3.7 - 10.4 12 [place] /2015 [facility] HEMATOLOGY RBC 4.74 M/CMM 4.20 - 12 [facility] 5.40 /2015 [facility] HEMATOLOGY MCV 78.7 fL 80.0 - 05/16 [facility] 98.0 /2015 [facility] BLOOD BANK ABO/Rh B POS 05/15 [facility] RESULTS /2015 [facility] BLOOD BANK Antibody Negative 05/15 [facility] RESULTS Scrn [facility] (05/15/16 1:47 AM) [place] SPECIAL Hgb A1C 5.7 % <=5.6 % 05/15 [facility] CHEMISTRY /2015 [facility] CARDIAC Troponin-I null 0.00 - 05/15 [facility] ENZYMES 0.40 [facility] Chest 2 Chest 2 EXAM: XR CHEST 2 VIEWS 05/14 - [facility] DX views DX - [facility] DATE: 05/14/2016 9:58 PM C[employer] POSTING SPECIALIST Read by: Ambrose Meier MD Dictated Date/time: 05/14/16 22:18 Electronically Signed by: Ambrose Meier MD 05/14/16 22:18 FINAL REPORT INDICATION: Syncope COMPARISON: None TECHNIQUE: PA and lateral chest radiographs FINDINGS: No pulmonary or pleural-based abnormality is identified. The heart size is normal. No acute bony abnormality is identified. IMPRESSION: No acute cardiopulmonary abnormality. Vital Signs Vital Sign Value Date Comments Source Respitory Rate 18 05/18/2016 [facility] Systolic (mm Hg) 110 05/18/2016 [facility] Diastolic (mm Hg) 75 05/18/2016 [facility] Heart Rate 76 05/18/2016 [facility] Temperature Oral (F) 99.3 F 05/18/2016 [facility] Systolic (mm Hg) 112 05/18/2016 [facility] Diastolic (mm Hg) 75 05/18/2016 [facility] Heart Rate 73 05/18/2016 [facility] Respitory Rate 18 05/18/2016 [facility] Temperature Oral (F) 98.1 F 05/18/2016 [facility] Heart Rate 71 05/18/2016 [facility] Temperature Oral (F) 98.6 F 05/18/2016 [facility] Respitory Rate 18 05/18/2016 [facility] Systolic (mm Hg) 102 05/18/2016 [facility] Diastolic (mm Hg) 69 05/18/2016 [facility] BMI Calculated 45.07 05/15/2016 [facility] Weight 119.091 05/15/2016 [facility] Height 162.56 cm 05/15/2016 [facility] BMI Calculated 45.07 05/15/2016 [facility] Weight 119.091 05/15/2016 [facility] Height 162.56 cm 05/15/2016 [facility] Encounters Location Location Encounter Encounter Reason Attending ADM DC Status Source Details Type Number For Provider Date Date Visit [facility] [id number] Nadia Sauceda 05/15 05/18 [facility] /2015 [facility] Procedures Procedure Code Date Perfomer Comments Source
--- OUTSIDE RECORDS SUMMARY | 2018-09-22 09:33 | XMS REPORT | Summary of Care ---
:1965 Author Organization [facility] Address [address] [place] [id number]- Encounter HQ Analyntr_anali(FIN) [id number] Date(s): 05/14/16 - 05/18/[address] Professional Services provided by [facility] [place] [address]- Final: Displaced unspecified fracture of left lesser toe(s), initial encounter for open fracture Discharge Disposition: Home or Self Care Attending Physician: Nadia Sauceda MD Admitting Physician: Nadia Sauceda MD Referring Physician: Benoit Loza MD Vital Signs Most recent to oldest 1 2 3 [Reference Range]: Height 162.56 cm 162.56 cm (05/15/16 5:31 AM) (05/14/16 9:36 PM) Temperature Oral [96.4-99.1 99.3 DegF 98.1 DegF 98.6 DegF DegF] *HI* (05/18/16 4:29 AM) (05/17/16 11:17 PM) (05/18/16 9:07 AM) Blood Pressure [90-140/60-90 110/75 mmHg 112/75 mmHg 102/69 mmHg mmHg] (05/18/16 9:07 AM) (05/18/16 4:29 AM) (05/17/16 11:17 PM) Respiratory Rate [14-20 18 BRMIN 18 BRMIN 18 BRMIN BRMIN] (05/18/16 9:07 AM) (05/18/16 4:29 AM) (05/17/16 11:17 PM) Peripheral Pulse Rate [60-100 76 bpm 73 bpm 71 bpm bpm] (05/18/16 9:07 AM) (05/18/16 4:29 AM) (05/17/16 11:17 PM) Weight 119.091 kg 119.091 kg (05/15/16 5:31 AM) (05/14/16 9:36 PM) Body Mass Index 45.07 m2 45.07 m2 (05/15/16 5:31 AM) (05/14/16 9:36 PM) Problem List No data available for this section Allergies, Adverse Reactions, Alerts Substance Reaction Severity Status aspirin Active Medications acetaminophen 1,000 mg, 2 tab, Route: PO, Drug form: TAB, Q6Hnow, Dosing Weight 119.091, kg, PRN Pain 4-6/Temp > 100.4 F, Start date: 05/15/16 2:32:00 SPEECH CLINICIAN, Stop date: 2:31:00 SPEECH CLINICIAN Notes: Max acetaminophen 4000 mg/day (4 gm/day). (Same as: Tylenol Extra Strength) Start Date: 05/15/16 Stop Date: 05/18/16 Status: DiscontinuedAncef 2 gm, Route: IVPB, ONCE, Dosing Weight 119.091, kg, Priority: STAT, Start date: 05/14/16 21:58:00 SPEECH CLINICIAN, Stop date: 05/14/16 21:58:00 SPEECH CLINICIAN Start Date: 05/14/16 Stop Date: 05/14/16 Status: CompletedANES flumazenil 0.2 mg, 2 mL, Route: IVP, Drug form: INJ, PRN, Dosing Weight 119.091, kg, PRN Benzodiazepine Reversal, Initial dose, Start date: 05/15/16 8:14:00 SPEECH CLINICIAN, Duration: 1 day, Stop date: 05/16/16 8:13:00 SPEECH CLINICIAN Notes: (Same as: Romazicon) Start Date: 05/15/16 Stop Date: 05/15/16 Status: DiscontinuedANES HYDROmorphone 0.5 mg, 0.25 mL, Route: IVP, Drug form: INJ, Q5Min, Dosing Weight 119.091, kg, PRN Pain Score 7-10, Start date: 05/15/16 8:14:00 SPEECH CLINICIAN, Duration: 4 doses or times, Stop date: Limited # of times Notes: (Same as: Dilaudid) Start Date: 05/15/16 Stop Date: 05/15/16 Status: DiscontinuedANES meperidine 12.5 mg, 0.5 mL, Route: IVP, Drug form: INJ, Q30Min, Dosing Weight 119.091, kg, PRN Other -See Comment, For shivering, Start date: 05/15/16 8:14:00 SPEECH CLINICIAN, Duration: 2 doses or times, Stop date: Limited #of times Notes: (Same as: Demerol) "Use Precaution in Elderly, Seizure disorders, and Renal impairment" Start Date: 05/15/16 Stop Date: 05/15/16 Status: DiscontinuedANES morphine Sulfate 2 mg, 1 mL, Route: IVP, Drug form: INJ, Q5Min, Dosing Weight 119.091, kg, PRN Pain Score 4-6, Start date: 05/15/16 8:14:00 SPEECH CLINICIAN, Duration: 5 doses or times, Stop date: Limited # of times Notes: (Same as:MORPhine Sulfate) Start Date: 05/15/16 Stop Date: 05/15/16 Status: DiscontinuedANES naloxone 0.4 mg, 1 mL, Route: IVP, Drug form: INJ, Q2MIN, Dosing Weight 119.091, kg, PRN Narcotic Reversal, Start date: 05/15/16 8:14:00 SPEECH CLINICIAN, Duration: 8 doses or times , Stop date: Limited # of times Notes: (Same as: Narcan) Start Date: 05/15/16 Stop Date: 05/15/16 Status: DiscontinuedANES ondansetron 4 mg, 2 mL, Route: IVP, Drug form: INJ, ONCE, Dosing Weight 119.091, kg, PRN Nausea & Vomiting, Start date: 05/15/16 8:14:00 SPEECH CLINICIAN Notes: (Same as: Zofran) MEDICATION WASTE Product Size: 4 mgProduct Wasted: ___ mg Start Date: 05/15/16 Stop Date: 05/15/16 Status: Discontinuedbisacodyl 10 mg, 1 supp, Route: CA, Drug form: SUPP, Daily, Dosing Weight 119.091, kg, PRN Constipation, Startdate: 05/15/16 2:32:00 SPEECH CLINICIAN, Duration: 30 day, Stop date: 06/14/16 2:31:00 SPEECH CLINICIAN Notes: (Same As: Dulcolax, Bisco-Lax) Start Date: 05/15/16 Stop Date: 05/18/16 Status: DiscontinuedceFAZolin (SCIP) + sodium chloride 0.9% INJ 100 mL 2 gm, Route: IVPB, Drug form: INJ, Q8H, Dosing Weight 119.091, kg, Start date: 05/15/16 16:00:00 SPEECH CLINICIAN, Duration: 9 doses or times, Stop date: 05/18/16 8:00:00 SPEECH CLINICIAN Notes: (Same As: Jeff Cedillo)Cefazolin FOR IV SET ONLY MEDICATION WASTE Product Size:1000 mgProduct Wasted: ___ mg Start Date: 05/15/16 Stop Date: 05/18/16 Status: Completeddocusate 100 mg, 1 cap, Route: PO, Drug form: CAP, BID, Dosing Weight 119.091, kg, Start date: 05/15/16 9:00:00 SPEECH CLINICIAN, Duration: 30 day, Stop date: 06/13/16 17:00:00 SPEECH CLINICIAN Notes: (Same as: Colace) (Do Not Crush) Start Date: 05/15/16 Stop Date: 05/18/16 Status: DiscontinuedDulcolax Laxative 10 mg, 2 tab, Route: PO, Drug form: ECTAB, Daily, Dosing Weight 119.091, kg, PRN Constipation, Startdate: 05/15/16 17:06:00 SPEECH CLINICIAN, Duration: 30 day, Stop date : 06/14/16 17:05:00 SPEECH CLINICIAN Notes: (Same As: Dulcolax, Correctol) (Do Not Crush) "Do Not Crush" Start Date: 05/15/16 Stop Date: 05/18/16 Status: DiscontinuedDulcolax Laxative 10 mg, 1 supp, Route: CA, Drug form: SUPP, Daily, Dosing Weight 119.091, kg, PRN Constipation, Startdate: 05/15/16 17:06:00 SPEECH CLINICIAN, Duration: 30 day, Stop date : 06/14/16 17:05:00 SPEECH CLINICIAN Notes: (Same As: Dulcolax, Bisco-Lax) Start Date: 05/15/16 Stop Date: 05/18/16 Status: Discontinuedenoxaparin 40 mg, 0.4 mL, Route: SUB-Q, Drug form: INJ, [id number], Dosing Weight 119.091, kg , Consider for obesepatients, Start date: 05/15/16 3:00:00 SPEECH CLINICIAN, Duration: 30 day , Stop date: 06/13/16 15:00:00 SPEECH CLINICIAN Notes: (Same as: Lovenox) Start Date: 05/15/16 Stop Date: 05/18/16 Status: Discontinuedgabapentin 300 mg oral capsule 300 mg, 1 cap, Route: PO, Drug form: CAP, Q8H, Dosing Weight 119.091, kg, (CrCl > 60 ml/min), Start date: 05/16/16 8:00:00 SPEECH CLINICIAN, Duration: 30 day, Stop date: 07/01 0:00:00 SPEECH CLINICIAN Notes: (Same as: Neurontin) Start Date: 05/16/16 Stop Date: 05/18/16 Status: Discontinuedgabapentin 300 mg oral capsule 300 mg=1 cap, PO, Q8H, # 42 cap, 0 Refill(s) Start Date: 05/18/16 Stop Date: 06/01/16 Status: Orderedmelatonin 3 mg, 1 tab, Route: PO, Drug form: TAB, Bedtime, Dosing Weight 119.091, kg, PRN Insomnia, Start date: 05/15/16 2:32:00 SPEECH CLINICIAN, Duration: 30 day, Stop date: 2:31:00 SPEECH CLINICIAN Notes: (Same as: Melatonin) Start Date: 05/15/16 Stop Date: 05/18/16 Status: Discontinuedmethocarbamol 1,000 mg, 2 tab, Route: PO, Drug form: TAB, Q8H, Dosing Weight 119.091, kg, PRN Muscle Spasms, Startdate: 05/15/16 2:32:00 SPEECH CLINICIAN, Duration: 30 day, Stop date: 2:31:00 SPEECH CLINICIAN Notes: (Same as:Robaxin) Start Date: 05/15/16 Stop Date: 05/16/16 Status: Discontinuedmethocarbamol 1,000 mg, 2 tab, Route: PO, Drug form: TAB, Q8H, Dosing Weight 119.091, kg, Start date: 05/16/16 8:00:00 SPEECH CLINICIAN, Duration: 30 day, Stop date: 06/15/16 0:00:00 SPEECH CLINICIAN Notes: (Same as:Robaxin) Start Date: 05/16/16 Stop Date: 05/18/16 Status: Discontinuedmethocarbamol 500 mg oral tablet 1,000 mg=2 tab, PO, Q8H, X 14 day, # 84 tab, 0 Refill(s) Start Date: 05/18/16 Stop Date: 06/01/16 Status: OrderedMiraLax 17 gm, 1 pkt, Route: PO, Drug form: PWDR, BID, Dosing Weight 119.091, kg, Start date: 05/16/16 9:00:00 SPEECH CLINICIAN, Duration: 30 day, Stop date: 06/14/16 17:00:00 SPEECH CLINICIAN Notes: Dissolve in 8 oz of water or juice.(Same as: Miralax) Start Date: 05/16/16 Stop Date: 05/18/16 Status: Discontinuedmorphine Sulfate 4 mg, Route: IVP, ONCE, Dosing Weight 119.091, kg, Priority: STAT, Start date: 05/14/16 21:58:00 SPEECH CLINICIAN, Stop date: 05/14/16 21:58:00 SPEECH CLINICIAN Start Date: 05/14/16 Stop Date: 05/14/16 Status: Completedmorphine Sulfate 2 mg, 0.5 mL, Route: IVP, Drug form: SOLN, Q4H, Dosing Weight 119.091, kg, PRN Pain Score 7-10, Start date: 05/15/16 2:32:00 SPEECH CLINICIAN, Duration: 30 day, Stop date: 06/14/16 2:31:00 SPEECH CLINICIAN Notes: (Same as:MORPhine Sulfate) Start Date: 05/15/16 Stop Date: 05/18/16 Status: Discontinuedmorphine Sulfate 4 mg, 1 mL, Route: IVP, Drug form: SOLN, ONCE, Dosing Weight 119.091, kg, Priority: STAT, Start date: 05/15/16 1:26:00 SPEECH CLINICIAN, Stop date: 05/15/16 1:26:00 SPEECH CLINICIAN Notes: (Same as:MORPhine Sulfate) Start Date: 05/15/16 Stop Date: 05/15/16 Status: Completedondansetron 4 mg, Route: IVP, Drug form: INJ, ONCE, Dosing Weight 119.091, kg, Priority: STAT, Start date: 05/14/16 21:58:00 SPEECH CLINICIAN, Stop date: 05/14/16 21:58:00 SPEECH CLINICIAN Start Date: 05/14/16 Stop Date: 05/14/16 Status: Completedondansetron 4 mg, 2 mL, Route: IVP, Drug form: INJ, Q8H, Dosing Weight 119.091, kg, PRN Nausea & Vomiting, Start date: 05/15/16 2:32:00 SPEECH CLINICIAN, Duration: 30 day, Stop date: 06/14/16 2:31:00 SPEECH CLINICIAN Notes: (Same as: Zofran) MEDICATION WASTE Product Size: 4 mgProduct Wasted: ___ mg Start Date: 05/15/16 Stop Date: 05/18/16 Status: DiscontinuedoxyCODONE 5 mg immediate release 10 mg, 2 tab, Route: PO, Drug form: TAB, Q4H, Dosing Weight 119.091, kg, PRN Pain Score 7-10, Start date: 05/15/16 2:32:00 SPEECH CLINICIAN, Duration: 30 day, Stop date: 06/14/16 2:31:00 SPEECH CLINICIAN Notes: (Same as: Roxicodone) Start Date: 05/15/16 Stop Date: 05/18/16 Status: DiscontinuedRobaxin 500 mg, 1 tab, Route: PO, Drug form: TAB, TID, Dosing Weight 119.091, kg, Start date: 05/16/16 9:00:00 SPEECH CLINICIAN, Duration: 30 day, Stop date: 06/14/16 17:00:00 SPEECH CLINICIAN Notes: (Same as:Robaxin) Start Date: 05/16/16 Stop Date: 05/16/16 Status: CanceledSaline Flush 0.9% 10 mL, Route: IVP, Drug Form: INJ, Dosing Weight 119.091, kg, PRN, PRN Line Flush, Start date: 05/14/16 21:58:00 SPEECH CLINICIAN, Duration: 30 day, Stop date: 06/13/16 21:57:00 SPEECH CLINICIAN Notes: (Same as: BD Posiflush) Start Date: 05/14/16 Stop Date: 05/18/16 Status: Discontinuedsenna 17.2 mg, 2 tab, Route: PO, Drug Form: TAB, Dosing Weight 119.091, kg, Bedtime, Start date: 05/15/16 21:00:00 SPEECH CLINICIAN, Duration: 30 day, Stop date: 06/13/16 21:00: 00 SPEECH CLINICIAN Notes: (Same as: Senokot) Start Date: 05/15/16 Stop Date: 05/18/16 Status: Discontinuedtramadol 100 mg, 2 tab, Route: PO, Drug form: TAB, Q6Hnow, Dosing Weight 119.091, kg, PRN Pain Score 4-6, Start date: 05/15/16 2:32:00 SPEECH CLINICIAN, Duration: 30 day, Stop date: 06/14/16 2:31:00 SPEECH CLINICIAN Notes: Not to exceed 400mg/day. (Same As: Ultram) Start Date: 05/15/16 Stop Date: 05/15/16 Status: Discontinuedtramadol 100 mg, 2 tab, Route: PO, Drug form: TAB, Q6Hnow, Dosing Weight 119.091, kg, Start date: 05/15/16 18:00:00 SPEECH CLINICIAN, Duration: 30 day, Stop date: 06/14/16 12:00: 00 SPEECH CLINICIAN Notes: Not to exceed 400mg/day. (Same As: Ultram) Start Date: 05/15/16 Stop Date: 05/18/16 Status: DiscontinuedTylenol 650 mg, 2 tab, Route: PO, Drug form: TAB, Q6H, Dosing Weight 119.091, kg, PRN Pain 1-3/Temp > 100.4 F, Start date: 05/15/16 17:06:00 SPEECH CLINICIAN, Duration: 30 day, Stop date: 06/14/16 17:05:00 SPEECH CLINICIAN Notes: Do not exceed 4 gm/day. (Same as: Tylenol) Start Date: 05/15/16 Stop Date: 05/18/16 Status: DiscontinuedTylenol with Codeine #3 oral tablet 1 - 2 tab, PO, Q6H, PRN Pain, X 4 day, # 32 tab, 0 Refill(s) Start Date: 05/18/16 Stop Date: 05/22/16 Status: Ordered Results BLOOD BANK RESULTS Most recent to oldest [Reference Range]: 1 2 3 ABO/Rh B POS *Unknown* (05/15/16 1:47 AM) Antibody Scrn Negative (05/15/16 1:47 AM) ELECTROLYTES Most recent to oldest 1 2 3 [Reference Range]: Sodium Lvl [135-145 mEq/L] 136 mEq/L 142 mEq/L 137 mEq/L (05/18/16 4:30 AM) (05/17/16 2:48 AM) (05/16/16 5:26 AM) Potassium Lvl [3.5-5.1 4.5 mEq/L 4.2 mEq/L 4.0 mEq/L mEq/L] (05/18/16 4:30 AM) (05/17/16 2:48 AM) (05/16/16 5:26 AM) Chloride Lvl [95-109 mEq/L] 102 mEq/L 106 mEq/L 104 mEq/L (05/18/16 4:30 AM) (05/17/16 2:48 AM) (05/16/16 5:26 AM) CO2 [24-32 mEq/L] 29 mEq/L 27 mEq/L 23 mEq/L (05/18/16 4:30 AM) (05/17/16 2:48 AM) *LOW* (05/16/16 5:26 AM) AGAP [10.0-20.0 mEq/L] 9.5 mEq/L 13.2 mEq/L 14.0 mEq/L *LOW* (05/17/16 2:48 AM) (05/16/16 5:26 AM) (05/18/16 4:30 AM) CHEM PANEL Most recent to oldest 1 2 3 [Reference Range]: Creatinine Lvl [0.50-1.40 0.82 mg/dL 0.80 mg/dL 0.70 mg/dL mg/dL] (05/18/16 4:30 AM) (05/17/16 2:48 AM) (05/16/16 5:26 AM) eGFR 96 mL/min/1.73m2 1 99 mL/min/1.73m2 2 116 mL/min/1.73m2 3 *NA* *NA* *NA* (05/18/16 4:30 AM) (05/17/16 2:48 AM) (05/16/16 5:26 AM) BUN [7-22 mg/dL] 9 mg/dL 7 mg/dL 7 mg/dL (05/18/16 4:30 AM) (05/17/16 2:48 AM) (05/16/16 5:26 AM) B/C Ratio [6-25] 11 (05/18/16 4:30 AM) Glucose Lvl [70-99 mg/dL] 102 mg/dL 73 mg/dL 107 mg/dL *HI* (05/17/16 2:48 AM) *HI* (05/18/16 4:30 AM) (05/16/16 5:26 AM) Total Protein [6.4-8.4 7.3 g/dL g/dL] (05/18/16 4:30 AM) Albumin Lvl [3.5-5.0 g/dL] 2.9 g/dL *LOW* (05/18/16 4:30 AM) Globulin [2.7-4.2 g/dL] 4.4 g/dL *HI* (05/18/16 4:30 AM) A/G Ratio [0.7-1.6] 0.7 (05/18/16 4:30 AM) Calcium Lvl [8.5-10.5 8.9 mg/dL 8.8 mg/dL 8.7 mg/dL mg/dL] (05/18/16 4:30 AM) (05/17/16 2:48 AM) (05/16/16 5:26 AM) Phosphorus [2.5-4.5 mg/dL] 2.7 mg/dL (05/18/16 4:30 AM) Magnesium Lvl [1.8-2.4 2.0 mg/dL mg/dL] (05/18/16 4:30 AM) ALT [0-65 unit/L] 25 unit/L (05/18/16 4:30 AM) AST [0-37 unit/L] 32 unit/L (05/18/16 4:30 AM) Alk Phos [39-136 unit/L] 66 unit/L (05/18/16 4:30 AM) Bili Total [0.2-1.3 mg/dL] 0.2 mg/dL (05/18/16 4:30 AM) 1Result Comment: The eGFR is calculated using the CKD-EPI formula. In most young , healthy individualsthe eGFR will be >90 mL/min/1.73m2. The eGFR declines with age. An eGFR of 60-89 may be normal in some populations, particularly the elderly, for whom the CKD-EPI formula has not been extensively validated. Use of the eGFR is not recommended in the following populations: Individuals with unstable creatinine concentrations, including patients and those with serious co-morbid conditions. Patients with extremes in muscle mass or diet. The data above are obtained from the National Kidney Disease Education Program ( NKDEP) which additionally recommends that when the eGFR is used in patients with extremes of body mass index for purposesof drug dosing, the eGFR should be multiplied by the estimated BMI.2Result Comment: The eGFR is calculated using the CKD-EPI formula. In most young, healthy individualsthe eGFR will be >90 mL/ min/1.73m2. The eGFR declines with age. An eGFR of 60-89 may be normal in some populations, particularly the elderly, for whom the CKD-EPI formula has not been extensively validated. Use of the eGFR is not recommended in the following populations: Individuals with unstable creatinine concentrations, including patients and those with serious co-morbid conditions. Patients with extremes in muscle mass or diet. The data above are obtained from the National Kidney Disease Education Program ( NKDEP) which additionally recommends that when the eGFR is used in patients with extremes of body mass index for purposesof drug dosing, the eGFR should be multiplied by the estimated BMI.3Result Comment: The eGFR is calculated using the CKD-EPI formula. In most young, healthy individualsthe eGFR will be >90 mL/ min/1.73m2. The eGFR declines with age. An eGFR of 60-89 may be normal in some populations, particularly the elderly, for whom the CKD-EPI formula has not been extensively validated. Use of the eGFR is not recommended in the following populations: Individuals with unstable creatinine concentrations, including patients and those with serious co-morbid conditions. Patients with extremes in muscle mass or diet. The data above are obtained from the National Kidney Disease Education Program ( NKDEP) which additionally recommends that when the eGFR is used in patients with extremes of body mass index for purposesof drug dosing, the eGFR should be multiplied by the estimated BMI.CARDIAC ENZYMES Most recent to oldest [Reference Range]: 1 2 3 Troponin-I [0.00-0.40 ng/mL] <0.02 ng/mL (05/14/16 9:58 PM) SPECIAL CHEMISTRY Most recent to oldest [Reference Range]: 1 2 3 Hgb A1C [<=5.6 %] 5.7 % *HI* (05/15/16 1:37 AM) ANEMIA STUDY Most recent to oldest [Reference Range]: 1 2 3 Iron [30-160 ug/dl] 42 ug/dl (05/18/16 4:30 AM) % Satur Fe [12-57 %] 13 % (05/18/16 4:30 AM) UIBC [110-370 ug/dl] 276 ug/dl (05/18/16 4:30 AM) TIBC [228-428 ug/dl] 318 ug/dl (05/18/16 4:30 AM) HEMATOLOGY Most recent to oldest 1 2 3 [Reference Range]: WBC [3.7-10.4 K/CMM] 5.0 K/CMM 4.5 K/CMM 5.7 K/CMM (05/18/16 4:30 AM) (05/17/16 2:48 AM) (05/16/16 5:26 AM) RBC [4.20-5.40 M/CMM] 4.44 M/CMM 4.38 M/CMM 4.74 M/CMM (05/18/16 4:30 AM) (05/17/16 2:48 AM) (05/16/16 5:26 AM) Hgb [12.0-16.0 g/dL] 11.1 g/dL 10.8 g/dL 11.7 g/dL *LOW* *LOW* *LOW* (05/18/16 4:30 AM) (05/17/16 2:48 AM) (05/16/16 5:26 AM) Hct [36.0-48.0 %] 35.0 % 34.3 % 37.3 % *LOW* *LOW* (05/16/16 5:26 AM) (05/18/16 4:30 AM) (05/17/16 2:48 AM) MCV [80.0-98.0 fL] 78.7 fL 78.3 fL 78.7 fL *LOW* *LOW* *LOW* (05/18/16 4:30 AM) (05/17/16 2:48 AM) (05/16/16 5:26 AM) MCH [27.0-31.0 pg] 24.9 pg 24.6 pg 24.8 pg *LOW* *LOW* *LOW* (05/18/16 4:30 AM) (05/17/16 2:48 AM) (05/16/16 5:26 AM) MCHC [32.0-36.0 g/dL] 31.7 g/dL 31.4 g/dL 31.5 g/dL *LOW* *LOW* *LOW* (05/18/16 4:30 AM) (05/17/16 2:48 AM) (05/16/16 5:26 AM) RDW [11.5-14.5 %] 16.3 % 16.6 % 16.3 % *HI* *HI* *HI* (05/18/16 4:30 AM) (05/17/16 2:48 AM) (05/16/16 5:26 AM) Platelet [133-450 K/CMM] 200 K/CMM 202 K/CMM 208 K/CMM (05/18/16 4:30 AM) (05/17/16 2:48 AM) (05/16/16 5:26 AM) MPV [7.4-10.4 fL] 9.0 fL 9.3 fL 8.9 fL (05/18/16 4:30 AM) (05/17/16 2:48 AM) (05/16/16 5:26 AM) Segs [45.0-75.0 %] 63.7 % 48.0 % 70.0 % (05/18/16 4:30 AM) (05/17/16 2:48 AM) (05/16/16 5:26 AM) Lymphocytes [20.0-40.0 %] 20.2 % 34.7 % 18.7 % (05/18/16 4:30 AM) (05/17/16 2:48 AM) *LOW* (05/16/16 5:26 AM) Monocytes [2.0-12.0 %] 12.3 % 13.6 % 9.1 % *HI* *HI* (05/16/16 5:26 AM) (05/18/16 4:30 AM) (05/17/16 2:48 AM) Eosinophils [0.0-4.0 %] 3.4 % 3.2 % 2.0 % (05/18/16 4:30 AM) (05/17/16 2:48 AM) (05/16/16 5:26 AM) Basophils [0.0-1.0 %] 0.4 % 0.5 % 0.2 % (05/18/16 4:30 AM) (05/17/16 2:48 AM) (05/16/16 5:26 AM) Segs-Bands # [1.5-8.1 K/CMM] 3.2 K/CMM 2.2 K/CMM 4.0 K/CMM (05/18/16 4:30 AM) (05/17/16 2:48 AM) (05/16/16 5:26 AM) Lymphocytes # [1.0-5.5 1.0 K/CMM 1.6 K/CMM 1.1 K/CMM K/CMM] (05/18/16 4:30 AM) (05/17/16 2:48 AM) (05/16/16 5:26 AM) Monocytes # [0.0-0.8 K/CMM] 0.6 K/CMM 0.6 K/CMM 0.5 K/CMM (05/18/16 4:30 AM) (05/17/16 2:48 AM) (05/16/16 5:26 AM) Eosinophils # [0.0-0.5 0.2 K/CMM 0.1 K/CMM 0.1 K/CMM K/CMM] (05/18/16 4:30 AM) (05/17/16 2:48 AM) (05/16/16 5:26 AM) Microcyte [None Seen] 1+ 1+ 1+ *ABN* *ABN* *ABN* (05/18/16 4:30 AM) (05/17/16 2:48 AM) (05/16/16 5:26 AM) Immunizations No data available for this section Procedures No data available for this section Social History Social History Type Response Substance Abuse Use: None. Alcohol Never Smoking Status Never smoker; Exposure to Tobacco Smoke None; Cigarette Smoking Last 365 Days No; Reg Smoking Cessation Counseling No Assessment and Plan Extracted from: Title: Hospitalist Progress Note Author: Nadia Sauceda MD Date: 05/17/16 Assessment/Plan 51 yo F s/p I&D ORIF L 5th toe 1.Fracture of fifth toe, left, open,Fracture of fifth toe, left, open s/p I&D ORIF L 5th toe POD 2 2 more doses of Ancef OK to WB through heel on LLE Ordered: CBC w/ Diff and Platelet CMP Iron Level and TIBC Magnesium Level Phosphorus Level 3.Pain controlled don current regimen on tramadol/gabapentin/robaxin Ordered: CBC w/ Diff and Platelet CMP Iron Level and TIBC Magnesium Level Phosphorus Level 4.Lymph edema chronic outpt f/u Ordered: CBC w/ Diff and Platelet CMP Iron Level and TIBC Magnesium Level Phosphorus Level 5.Low blood pressure Vitals reviewed , BP recorded 86/54 mmHg, asymptomatic, will monitor. RN states that patient reported that the BP cuff was loose when it was recorded, will recheck Ordered: CBC w/ Diff and Platelet CMP Iron Level and TIBC Magnesium Level Phosphorus Level 6.Anemia - microcytic anemia, likely related to blood loss - will check iron panel - Hb 10.8 Ordered: CBC w/ Diff and Platelet CMP Iron Level and TIBC Magnesium Level Phosphorus Level Prophylaxis Lovenox Disposition DC planning tomorrow AM to home. Please page Nadia Sauceda MD, Hospitalist at [phone] for any questions or concerns DC info WBAT LLE in hard soled shoe Call [phone] to make an appointment with Dr. Montero or Ella Stack PA-C for 05/20/16 Extracted from: Title: History and Physical Author: Shakir Pugh MD Date: 05/15/16 Assessment/Plan 51-year-old female status post fall with leftfifth toe fracture 1.Fracture of fifth toe, left, open Orthopedics planning on operative intervention the morning Currently on Ancef 2.Pain When necessary Tylenol Ultram and narcotics as needed for pain control 3.Lymph edema Chronicno acute changes continue to follow Prophylaxis Lovenox Disposition Hospice is primary please page [phone] with issues or questions Extracted from: Title: ORS Trauma Author: Oscar Penny MD Date: 05/14/16 ORS Trauma Consult H&P Reason for Consult: 5th toe fracture Source of Consult: [facility] ED Consulting Physician: Sara Guevara MD Orthopaedic Attending: Jonny Montero MD Date of Service: 05/15/2016 CC: L 5th toe pain HPI: The pt is a 51F s/p fall on Thursday after getting some good news. She felt immediate onset pain to the L 5th toe. Denies any bleeding at that time. She has been ambulatory. She and her noted some drainage over the past few days and presented to an OSH where XR were obtained. They were transferred her for a higher level of care. PMH: Denies, however does not see a physician PSH: BTL Medications: See med rec. Allergies: ASA Review of Systems: Gen: Denies fever/chills/night sweats. HEENT: Denies vision change, sore throat, ulcers in mouth, epistaxis CV: Denies CP, Palpitations Resp: Denies SOB, wheezing, cough GI: Denies Abd pain, N/V/D/Constipation. Denies incontinence. : Denies urinary retention, urgency, burning, discharge. Back/Spine: Denies pain. Neuro: Denies numbness, tingling, headaches, weakness in extremities. Integumentary: Denies open wounds, rashes, patiño. Endocrine: Denies recent weight changes, heat/cold insensitivity. Psych: Denies depression, anxiety, labile mood, suicidal/homicidal ideation. Musculoskeletal: Denies all but HPI. All other systems negative except HPI. 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 24 Hr Tmin: 97.9F (36.61c) at 05/14 21:36 Weights are the last 5 in 60 days, plus initial. Gen: A/Ox3, NAD Resp: Breathing unlabored CV: Distal pulses palpated, RRR Abd: NT, ND Pelvis: NT to stress, no open wounds. LLE: Inspection/palpation: 0.5 cm open wound over the medial aspect of the 5th toe in the intertriginous area. TTP L 5th toe. Minimal drainage. Mild foul odor. No bleeding. no gross deformity. Comparments soft and compressible. No crepitus. Sensation: Sensation reported to light touch to DP, SP, Tib, Vandana, Saph nerves Motor: 5/5 EHL/FHL, TA, GS Vascular: 2+ DP/PT, all toes BCR <2 sec Lab Data: Reviewed in [facility] Imaging: L open 5th toe proximal phalanx fx Assessment: 51F s/p Fall sustaining L open 5th toe fx on 05/11. Plan/Recs: - Weight bearing status: NWB LLE - Antibiotics: Ancef - Pain control - MMT - Admit to Hospitalist - Dressings: keep splint/dressings on and c/d/i. Ortho will do first change. - Pre-op clearance and risk stratification - Pending ORS surgeries: Pending I&D, CRPP L 5th toe in AM - Dispo: will continue to follow while in house Oscar Penny MD Orthopedic Surgery, PGY-2 MSO #[id number] [place], have examined the patient and agree with the above assessment and plan on 05/15/2016. Plan: to the OR for I&D/pinning of L 5th toe, IV abx, npo, review the consent.
[2018-09-22] MEDS ORDERED: KETOROLAC 30 MG/ML INJ ONE (10:17)
--- NOTE | 2018-09-22 11:30 | ER ---
Nurse's Notes [facility] Name: Radha Hughes Age: 53 yrs Sex: Female : 1965 Arrival Date: 09/22/2018 Time: 09:33 Bed 7 Private MD: Codey Mccrary Diagnosis: Headache;Chest pain, unspecified;Shoulder lesion, unspecified Presentation: 09/22 09:36 Presenting complaint: Patient states: Pt reports intermittent shooting pains that began ss in head and neck two days ago and now affects her chest, arm, leg and foot on the L side. Transition of care: patient was not received from another setting of care. Onset of symptoms was September 20, 2018. Risk Assessment: Do you want to hurt yourself or someone else? Patient reports no desire to harm self or others. Initial Sepsis Screen: Does the patient meet any 2 criteria? No. Patient's initial sepsis screen is negative. Does the patient have a suspected source of infection? No. Patient's initial sepsis screen is negative. Care prior to arrival: None. 09:36 Method Of Arrival: Ambulatory ss 09:36 Acuity: XIMENA 3 ss Historical: - Allergies: 09:38 Aspirin; ss - Home Meds: 09:38 None [Active]; ss - PMHx: 09:38 Migraines; ss - PSHx: 09:38 Foot surgery; Tubal ligation; ss - Immunization history:: Adult Immunizations up to date. - Social history:: Smoking status: Patient/guardian denies using tobacco. - Ebola Screening: : Patient denies exposure to infectious person Patient denies travel to an Ebola-affected area in the 21 days before illness onset. Screenin:16 Abuse screen: Denies threats or abuse. Denies injuries from another. Nutritional hb screening: No deficits noted. Tuberculosis screening: No symptoms or risk factors identified. Fall Risk None identified. Assessment: 10:14 General: Appears in no apparent distress. Behavior is calm, cooperative. Pain: Pain hb currently is 10 out of 10 on a pain scale. Neuro: Level of Consciousness is awake, alert, obeys commands, Oriented to person, place, time, situation. Cardiovascular: Capillary refill < 3 seconds Patient's skin is warm and dry. Respiratory: Airway is patent Respiratory effort is even, unlabored, Respiratory pattern is regular, symmetrical, Breath sounds are clear bilaterally. GI: No signs and/or symptoms were reported involving the gastrointestinal system. : No signs and/or symptoms were reported regarding the genitourinary system. EENT: No signs and/or symptoms were reported regarding the EENT system. Derm: Skin is intact, is healthy with good turgor, Skin is pink, warm \T\ dry. Musculoskeletal: Reports pain all over 03/24. 11:00 Reassessment: Patient appears in no apparent distress at this time. Patient and/or hb family updated on plan of care and expected duration. Pain level reassessed. Patient is alert, oriented x 3, equal unlabored respirations, skin warm/dry/pink. Vital Signs: 09:38 BP 147 / 76; Pulse 75; Resp 16; Temp 97.6(TE); Pulse Ox 97% on R/A; Weight 117.93 kg; ss Height 5 ft. 4 in. (162.56 cm); Pain 10/10; 10:30 BP 142 / 70; Pulse 70; Resp 16; Pulse Ox 100% on R/A; hb 09:38 Body Mass Index 44.63 (117.93 kg, 162.56 cm) ED Course: 09:33 Patient arrived in ED. mr 09:33 Alexis Clifford MD is Attending Physician. kdr 09:34 Codey Mccrary MD is Private Physician. mr 09:38 Triage completed. ss 09:38 Arm band placed on right wrist. ss 10:01 Carissa Kruger, RN is Primary Nurse. hb 10:16 Patient has correct armband on for positive identification. Bed in low position. Call hb light in reach. Side rails up X 1. 11:29 Codey Mccrary MD is Referral Physician. kdr 11:41 No provider procedures requiring assistance completed. Patient did not have IV access hb during this emergency room visit. Administered Medications: 10:13 Drug: TORadol - Ketorolac 15 mg Route: IM; Site: right deltoid; hb 11:00 Follow up: Response: No adverse reaction; Pain is decreased hb Outcome: 11:30 Discharge ordered by . kdr 11:41 Discharged to home ambulatory, with significant other. hb 11:41 Condition: stable 11:41 Discharge instructions given to patient, Instructed on discharge instructions, follow up and referral plans. medication usage, Demonstrated understanding of instructions, follow-up care, medications, Prescriptions given X 1. 11:43 Patient left the ED. hb Signatures: Alexis Clifford MD MD [facility] Bill Alaina Carmencita Murillo RN RN Carissa Rubio RN RN hb
--- NOTE | 2018-09-22 11:30 | EDPHYS ---
Physician Documentation [facility] Name: Radha Hughes Age: 53 yrs Sex: Female : 1965 Arrival Date: 09/22/2018 Time: 09:33 Bed 7 Private MD: Codey Mccrary ED Physician Alexis Clifford HPI: 09/22 10:42 This 53 yrs old Black Female presents to ER via Ambulatory with complaints of Left side kdr body pain. 10:42 Details of fall: The patient fell from an upright position, while walking. Onset: The kdr symptoms/episode began/occurred suddenly, just prior to arrival. Associated injuries: The patient sustained Left post auriclar/ mastoid, left hip. Severity of symptoms: At their worst the symptoms were mild, just prior to arrival, in the emergency department the symptoms are unchanged. The patient has not experienced similar symptoms in the past. The patient has not recently seen a physician. The patient was using her walker to walk around her bed when she tripped and fell getting tangled in her walker. She denies LOC but states she is having pain in her left hip. She has no other c/o at this time other than minor pain behind her left ear which she states is minor.. Historical: - Allergies: 09:38 Aspirin; ss - Home Meds: 09:38 None [Active]; ss - PMHx: 09:38 Migraines; ss - PSHx: 09:38 Foot surgery; Tubal ligation; ss - Immunization history:: Adult Immunizations up to date. - Social history:: Smoking status: Patient/guardian denies using tobacco. - Ebola Screening: : Patient denies exposure to infectious person Patient denies travel to an Ebola-affected area in the 21 days before illness onset. ROS: 11:23 Constitutional: Negative for fever, chills, and weight loss, Eyes: Negative for injury, kdr pain, redness, and discharge, ENT: Negative for injury, pain, and discharge, Neck: Negative for injury, pain, and swelling, Cardiovascular: Negative for chest pain, palpitations, and edema, Respiratory: Negative for shortness of breath, cough, wheezing, and pleuritic chest pain, Abdomen/GI: Negative for abdominal pain, nausea, vomiting, diarrhea, and constipation, Back: Negative for injury and pain, : Negative for injury, bleeding, discharge, and swelling, MS/Extremity: Negative for injury and deformity, Skin: Negative for injury, rash, and discoloration, Psych: Negative for depression, anxiety, suicide ideation, homicidal ideation, and hallucinations, Allergy/Immunology: Negative for hives, rash, and allergies, Endocrine: Negative for neck swelling, polydipsia, polyuria, polyphagia, and marked weight changes, Hematologic/Lymphatic: Negative for swollen nodes, abnormal bleeding, and unusual bruising. 11:23 Neuro: Positive for dizziness, headache, The patient has had intermittent dizziness for days. Mostly when she bends over. She has no other c/o or concern in the ED. Exam: 11:23 Constitutional: This is a well developed, well nourished patient who is awake, alert, kdr and in no acute distress. Head/Face: Normocephalic, atraumatic. Eyes: Pupils equal round and reactive to light, extra-ocular motions intact. Lids and lashes normal. Conjunctiva and sclera are non-icteric and not injected. Cornea within normal limits. Periorbital areas with no swelling, redness, or edema. Neck: Trachea midline, no thyromegaly or masses palpated, and no cervical lymphadenopathy. Supple, full range of motion without nuchal rigidity, or vertebral point tenderness. No Meningismus. Chest/axilla: Normal chest wall appearance and motion. Nontender with no deformity. No lesions are appreciated. Cardiovascular: Regular rate and rhythm with a normal S1 and S2. No gallops, murmurs, or rubs. Normal PMI, no JVD. No pulse deficits. Respiratory: Lungs have equal breath sounds bilaterally, clear to auscultation and percussion. No rales, rhonchi or wheezes noted. No increased work of breathing, no retractions or nasal flaring. Abdomen/GI: Soft, non-tender, with normal bowel sounds. No distension or tympany. No guarding or rebound. No evidence of tenderness throughout. Neuro: Awake and alert, GCS 15, oriented to person, place, time, and situation. Cranial nerves II-XII grossly intact. Motor strength 5/5 in all extremities. Sensory grossly intact. Cerebellar exam normal. Normal gait. Vital Signs: 09:38 BP 147 / 76; Pulse 75; Resp 16; Temp 97.6(TE); Pulse Ox 97% on R/A; Weight 117.93 kg; ss Height 5 ft. 4 in. (162.56 cm); Pain 10/10; 10:30 BP 142 / 70; Pulse 70; Resp 16; Pulse Ox 100% on R/A; hb 09:38 Body Mass Index 44.63 (117.93 kg, 162.56 cm) ss MDM: 11:23 Data reviewed: vital signs, nurses notes. Counseling: I had a detailed discussion with kdr the patient and/or guardian regarding: the historical points, exam findings, and any diagnostic results supporting the discharge/admit diagnosis, the need for outpatient follow up. ED course: The patient was feeling better and that the discomfort was confined to the left upper scalp, neck, shoulder and chest. 11:30 Patient medically screened. kdr Administered Medications: 10:13 Drug: TORadol - Ketorolac 15 mg Route: IM; Site: right deltoid; hb 11:00 Follow up: Response: No adverse reaction; Pain is decreased hb Disposition: 09/22/18 11:30 Discharged to Home. Impression: Headache, Chest pain, unspecified, Shoulder lesion, unspecified. - Condition is Stable. - Discharge Instructions: General Headache Without Cause, Nonspecific Chest Pain, [id number]. - Prescriptions for Neurontin 300 mg Oral Capsule - take 1 capsule by ORAL route every 8 hours; 30 capsule. - Medication Reconciliation Form, Thank You Letter, Work release form, Family Work Release form. - Follow up: Codey Mccrary MD; When: 2 - 3 days; Reason: If symptoms return, Further diagnostic work-up, Recheck today's complaints, Continuance of care, Re-evaluation by your physician. - Problem is an acute exacerbation. - Symptoms have improved. Signatures: Alexis Clifford MD MD [facility] Carmencita Mueller RN RN Carissa Kruger, YESSI RN hb Corrections: (The following items were deleted from the chart) 11:43 11:30 09/22/2018 11:30 Discharged to Home. Impression: Headache; Chest pain, hb unspecified; Shoulder lesion, unspecified. Condition is Stable. Forms are Medication Reconciliation Form, Thank You Letter, Antibiotic Education, Prescription Opioid Use. Follow up: Codey Mccrary; When: 2 - 3 days; Reason: If symptoms return, Further diagnostic work-up, Recheck today's complaints, Continuance of care, Re-evaluation by your physician. Problem is an acute exacerbation. Symptoms have improved. kdr
[2018-09-22 11:47] VITALS: TEMP 97.6
[2018-09-22 11:49] VITALS: BP 142/70; O2SAT 100
== END 2018-09-22 11:43 | disposition home or self-care (01) ==
LOC: ER 09:29
DX: M25.552 Pain in left hip (principal); R51 Headache; R07.9 Chest pain, unspecified; M75.90 Shoulder lesion, unspecified, unspecified shoulder
CPT/HCPCS: 96372; 99283

== ENCOUNTER 2019-09-23 14:52 | Emergency (ER) | payer OTHER, SELFPAY ==
[2019-09-23 16:35] LABS: Urine RBC <5 /HPF (NONE SEEN)
[2019-09-23 16:36] LABS: Urine Bacteria 20-50 /HPF (<20); Urine Culture Reflex Order REFLEXED; Urine Mucus 1+ /HPF (NONE SEEN)
[2019-09-23 16:36] LABS: Urine Blood TRACE (NEG); Urine Glucose NEGATIVE (NEG); Urine Protein TRACE (NEG); Urine pH 5.5 (5.0-7.0)
[2019-09-23 16:37] LABS: Absolute Lymphocytes (CBC) 2.1 K/uL (0.7-4.9); Basophils % 0.8 % (0-1.3); Hematocrit 37.4 % (36.0-45.0); MPV 8.8 fL (7.6-11.3); RBC Red Blood Cell Count 4.73 M/uL (3.86-4.86)
[2019-09-23 16:56] LABS: Albumin 3.4 g/dL (3.4-5.0); Bilirubin Total 0.3 mg/dL (0.2-1.0); Potassium 3.9 mmol/L (3.5-5.1); Protein, Total 7.9 g/dL (6.4-8.2)
--- NOTE | 2019-09-23 17:48 | RAD REPORT ---
EXAM DESCRIPTION: US - Pelvis Complete - 09/23/2019 5:39 pm CLINICAL HISTORY: vaginal bleeding, pelvic pain Pelvic pain. COMPARISON: Transvaginal Study Probe dated 09/23/2019 FINDINGS: Transabdominal and transvaginal pelvic ultrasound was performed. The uterus is normal in size, shape and echotexture. The uterus measures 11.3 x 6.7 cm. The endometrial stripe measures 10 mm, normal. Mild fluid collection is seen in the lower uterine seg ment may be a collection of blood product. Both ovaries were obscured by bowel gas. No significant pelvic ascites. IMPRESSION: Mild fluid collection the lower uterine stripe region may represent blood product. Both ovaries were not visualized due to bowel gas.
--- NOTE | 2019-09-23 19:22 | EDPHYS ---
Physician Documentation [facility] Name: Radha Hughes Age: 54 yrs Sex: Female : 1965 Arrival Date: 09/23/2019 Time: 14:55 Bed 19 Private MD: ED Physician Alexis Clifford HPI: 09/22 16:27 This 54 yrs old Black Female presents to ER via Ambulatory with complaints of Vaginal jmm Bleeding. 16:27 The patient presents with vaginal bleeding that is. jmm 16:28 Onset: The symptoms/episode began/occurred gradually, 1 day(s) ago. Modifying factors: jmm The symptoms are alleviated by nothing, the symptoms are aggravated by nothing. Associated signs and symptoms: Pertinent positives: dysuria, vaginal bleeding, Pertinent negatives: fever. Patient denies weakness but complains of pelvic pain. Irregular cycles for past 2 years. Heavy bleeding over the past day. Denies weakness. . 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 - Social history:: Smoking status: Patient denies any tobacco usage or history of. ROS: 16:28 Constitutional: Negative for fever, chills, and weight loss, Cardiovascular: Negative jmm for chest pain, palpitations, and edema, Respiratory: Negative for shortness of breath, cough, wheezing, and pleuritic chest pain, Abdomen/GI: Negative for abdominal pain, nausea, vomiting, diarrhea, and constipation. 16:28 : Positive for vaginal bleeding. 16:28 All other systems are negative. Exam: 16:28 Constitutional: This is a well developed, well nourished patient who is awake, alert, jmm and in no acute distress. Head/Face: atraumatic. Eyes: EOMI, no conjunctival erythema appreciated ENT: Moist Mucus Membranes Neck: Trachea midline, Supple Chest/axilla: Normal chest wall appearance and motion. Cardiovascular: Regular rate and rhythm. No edema appreciated Respiratory: Normal respirations, no respiratory distress appreciated Abdomen/GI: Non distended, soft Back: Normal ROM Skin: General appearance color normal MS/ Extremity: Moves all extremities, no obvious deformities appreciated, no edema noted to the lower extremities Neuro: Awake and alert, normal gait Psych: Behavior is normal, Mood is normal, Patient is cooperative and pleasant 19:19 : Pelvic Exam: External exam: is normal, Speculum exam: mild bleeding, blood clots in [facility] vaginal vault, os that is closed. Vital Signs: 15:41 BP 188 / 90; Pulse 58; Resp 17; Temp 98.1; Pulse Ox 100% ; Weight 111.13 kg; Height 5 jl7 ft. 4 in. (162.56 cm); Pain 6/10; 19:28 BP 142 / 78; Pulse 55; Resp 18; Pulse Ox 99% ; ah 15:41 Body Mass Index 42.05 (111.13 kg, 162.56 cm) jl7 MDM: 16:15 Patient medically screened. [facility] 19:20 Data reviewed: vital signs, nurses notes. Counseling: I had a detailed discussion with [facility] the patient and/or guardian regarding: the historical points, exam findings, and any diagnostic results supporting the discharge/admit diagnosis, lab results, radiology results, the need for outpatient follow up, to return to the emergency department if symptoms worsen or persist or if there are any questions or concerns that arise at home. ED course: Patient is alert and non toxic in appearance in the ED. H/H wnl. Hemodynamically stable. Patient is advised to follow up with LIVING COACH for further evaluation. Patient understood and agrees with the plan of care. . 09/22 16:07 Order name: Urine Microscopic Only; Complete Time: 16:51 dh3 09/22 16:16 Order name: CBC with Diff; Complete Time: 16:51 [facility] 09/22 16:16 Order name: CMP; Complete Time: 16:57 [facility] 09/22 16:22 Order name: Urine Dipstick--Ancillary (enter results) eb 09/22 16:22 Order name: Urine Dipstick-Ancillary; Complete Time: 16:51 [facility] 09/22 16:36 Order name: Urine Culture [facility] 09/22 16:16 Order name: Saline Lock; Complete Time: 17:55 [facility] 09/22 16:17 Order name: US Pelvis Complete; Complete Time: 18:08 [facility] 09/22 17:07 Order name: Transvaginal Study Probe [facility] 09/22 18:08 Order name: Pelvic Exam Setup; Complete Time: 19:06 reagan Administered Medications: No medications were administered Disposition: 09/23 10:47 Co-signature as Attending Physician, Alexis Clifford MD I agree with the assessment and kdr plan of care. Disposition: 09/23/19 19:22 Discharged to Home. Impression: Abnormal uterine and vaginal bleeding, unspecified. - Condition is Stable. - Discharge Instructions: Abnormal Uterine Bleeding, Dysfunctional Uterine Bleeding. - Medication Reconciliation Form, Thank You Letter, Antibiotic Education, Prescription Opioid Use form. - Follow up: Britany Griffin MD; When: 2 - 3 days; Reason: Recheck today's complaints, Continuance of care, Re-evaluation by your physician. Signatures: Dispatcher [employer] [facility] Alexis Clifford MD MD kdr Mickail, Joel, PA PA Marie Rashid RN RN jl Avril Rivas RN RN Corrections: (The following items were deleted from the chart) 09/22 19:35 19:22 09/23/2019 19:22 Discharged to Home. Impression: Abnormal uterine and vaginal ah bleeding, unspecified. Condition is Stable. Forms are Medication Reconciliation Form, Thank You Letter, Antibiotic Education, Prescription Opioid Use. Follow up: Britany Griffin; When: 2 - 3 days; Reason: Recheck today's complaints, Continuance of care, Re-evaluation by your physician. [facility]
--- NOTE | 2019-09-23 19:22 | ER ---
Nurse's Notes [facility] Name: Radha Hughes Age: 54 yrs Sex: Female : 1965 Arrival Date: 09/23/2019 Time: 14:55 Bed 19 Private MD: Diagnosis: Abnormal uterine and vaginal bleeding, unspecified Presentation: 09/22 15:41 Chief complaint: Patient states: LMP was about a year or 2 ago, reports intermittent jl7 urinary incontinence x 3 weeks and vaginal bleeding with clots and cramping since yesterday. Talked to a nurse on the phone and they told her to come to ER. Coronavirus screen: Proceed with normal triage. Ebola Screen: No symptoms or risks identified at this time. Initial Sepsis Screen: Does the patient meet any 2 criteria? No. Patient's initial sepsis screen is negative. Does the patient have a suspected source of infection? No. Patient's initial sepsis screen is negative. Risk Assessment: Do you want to hurt yourself or someone else? Patient reports no desire to harm self or others. Onset of symptoms was September 22, 2019. 15:41 Method Of Arrival: Ambulatory [facility] 15:41 Acuity: XIMENA 3 jl7 Triage Assessment: 15:45 General: Appears in no apparent distress. uncomfortable, Behavior is calm, cooperative, jl7 appropriate for age. Pain: Complains of pain in right lower quadrant and left lower quadrant Pain currently is 6 out of 10 on a pain scale. Quality of pain is described as crampy. : Reports vaginal bleeding that is bright red, with clots, heavy flow. 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 - Social history:: Smoking status: Patient denies any tobacco usage or history of. Screenin:10 Abuse screen: Denies threats or abuse. Nutritional screening: No deficits noted. Tuberculosis screening: No symptoms or risk factors identified. Fall Risk None identified. Assessment: 16:06 General: Appears in no apparent distress. Behavior is calm, cooperative. Pain: Denies pain. Neuro: No deficits noted. Level of Consciousness is awake, alert, Oriented to person, place, time. Cardiovascular: Denies chest pain, Heart tones S1 S2 present Capillary refill < 3 seconds Patient's skin is warm and dry. Pulses are palpable in right radial artery and left radial artery. Respiratory: Airway is patent Respiratory effort is even, unlabored, Respiratory pattern is regular, symmetrical, Breath sounds are clear bilaterally. GI: No signs and/or symptoms were reported involving the gastrointestinal system. Patient currently denies nausea, vomiting. : No signs and/or symptoms were reported regarding the genitourinary system. Pt states that she is having to change a tampon every hour since last night. She states that she has beening passing clots off and on for about 3 weeks. Reports suprapubic discomfort. EENT: No signs and/or symptoms were reported regarding the EENT system. Derm: No signs and/or symptoms reported regarding the dermatologic system. Musculoskeletal: No signs and/or symptoms reported regarding the musculoskeletal system. 19:32 Reassessment: No distress noted. 19:33 Reassessment: Pt returned from US. No needs voiced at this time. Vital Signs: 15:41 BP 188 / 90; Pulse 58; Resp 17; Temp 98.1; Pulse Ox 100% ; Weight 111.13 kg; Height 5 jl7 ft. 4 in. (162.56 cm); Pain 6/10; 19:28 BP 142 / 78; Pulse 55; Resp 18; Pulse Ox 99% ; ah 15:41 Body Mass Index 42.05 (111.13 kg, 162.56 cm) 7 ED Course: 14:55 Patient arrived in ED. mr 15:44 Triage completed. jl7 15:45 Arm band placed on right wrist. 7 15:56 Avril Rivas, RN is Primary Nurse. 16:07 Urine collected: clean catch specimen, cloudy, danette colored. [facility] 16:08 Eric Sheffield PA is PHCP. [facility] 16:08 Alexis Clifford MD is Attending Physician. [facility] 16:20 Inserted saline lock: 22 gauge in left antecubital area, using aseptic technique. 17:00 Patient taken to ultrasound. via wheelchair. 17:15 Patient has correct armband on for positive identification. Placed in gown. Bed in low ah position. Call light in reach. Side rails up X2. 17:35 Patient moved back from ultrasound. 17:39 US Pelvis Complete In Process Unspecified. EDMS 17:39 Transvaginal Study Probe In Process Unspecified. EDMS 17:56 Urine Dipstick--Ancillary (enter results) Sent. 18:20 Assist provider with pelvic exam: Set up pelvic tray. Performed by Eric CONTRERAS Patient tolerated well. 19:21 Britany Griffin MD is Referral Physician. [facility] 19:35 IV discontinued, intact, bleeding controlled, No redness/swelling at site. Pressure dressing applied. Administered Medications: No medications were administered Outcome: 19:22 Discharge ordered by . [facility] 19:34 Discharged to home ambulatory. 19:34 Condition: good 19:34 Discharge instructions given to patient, Instructed on discharge instructions, follow up and referral plans. Demonstrated understanding of instructions, follow-up care. 19:35 Patient left the ED. Addendum: 09/27/2019 09:31 Addendum: Culture Results: Positive urine culture. Prescription called-in to pharmacy [facility] of choice. to [facility] pharmacy in [place], [place] per pt's request. Macrobid 100mg PO BID x 7 days per Belia Tolentino NP. Signatures: Dispatcher [employer] Eric [place] PA PA jmm RiveraAlaina mr SandhuCristy, RN RN aa5 Marie Wood RN RN jl7 Luisa Warren [facility] Avril Rivas, RN YESSI
[2019-09-23 19:58] VITALS: TEMP 98.1
[2019-09-23 19:59] VITALS: BP 142/78; O2SAT 99
--- NOTE | 2019-09-25 10:42 | RAD REPORT ---
EXAM DESCRIPTION: US - Transvaginal Study Probe - 09/23/2019 5:39 pm CLINICAL HISTORY: Vaginal bleeding, pelvic pain Pelvic pain. COMPARISON: Transvaginal Study Probe dated 09/23/2019 FINDINGS: Transabdominal and transvaginal pelvic ultrasound was performed. The uterus is normal in size, shape and echotexture. The uterus measures 11.3 x 6.7 cm. The endometrial stripe measures 10 mm, normal. Mild fluid collection is seen in the lower uterine seg ment may be a collection of blood product. Both ovaries were obscured by bowel gas. No significant pelvic ascites. IMPRESSION: Mild fluid collection the lower uterine stripe region may represent blood product. Both ovaries were not visualized due to bowel gas.
== END 2019-09-23 19:35 | disposition home or self-care (01) ==
LOC: ER 14:52
DX: N93.9 Abnormal uterine and vaginal bleeding, unspecified (principal); Z88.6 Allergy status to analgesic agent
CPT/HCPCS: 36415; 76830; 76856; 80053; 81003; 81015; 85025; 87077; 87086; 87088; 87186; 99284